=== PATIENT | female | born 1965 | race American Indian/Alaskan Native ===

== ENCOUNTER 2016-07-05 01:49 | Emergency (ER) | payer MEDICARE, MEDICAID ==
[2016-07-05 01:49] VITALS: BMI 23.3
[2016-07-05 02:02] VITALS: O2SAT 98
[2016-07-05 02:32] VITALS: BP 144/72; PULSE 84; RESP 14; TEMP 98.5
--- NOTE | 2016-07-05 02:34 | ED PDOC ---
HPI: Skin/Bite Injury Time Seen by Provider: 07/05/16 01:59 Chief Complaint (Nursing): Abnormal Skin Integrity Chief Complaint (Provider): Rash History Per: Patient History/Exam Limitations: no limitations Onset/Duration Of Symptoms: Days (3) Current Symptoms Are (Timing): Still Present Additional Complaint(s): Sunita Neves is a 51 y/o female, with a past medical history of seizures and schizophrenia, presenting to the ER on 07/05/2016 with a rash. Rash, localized to her trunk, is described as pruritic and is characterized by multiple small areas that are raised and erythematous. Patient denies any associated fever, chills, nausea, vomiting, cough, or shortness of breath. Patient states the presentation began when she had lesions initially in her left upper thigh. Past Medical History Reviewed: Historical Data, Nursing Documentation, Vital Signs Vital Signs: Last Vital Signs Temp 98.6 F 07/05/16 01:59 Pulse 81 07/05/16 01:59 Resp 16 07/05/16 01:59 BP 145/82 07/05/16 01:59 Pulse Ox 98 07/05/16 01:59 - Medical History PMH: Kidney Stones, Schizophrenia, Seizures - Surgical History Surgical History: - Family History Family History: States: Unknown Family Hx - Social History Current smoker - smoking cessation education provided: No Ex-Smoker (has not smoked in the last 12 months): No Alcohol: Occasional Drugs: Denies - Home Medications Home Medications: Ambulatory Orders Medication Instructions Recorded Phenobarbital [Phenobarbital] 1 tab PO DAILY #0 tablet 07/27/15 carBAMazepine [TEGretol-XR] 100 mg PO DAILY #30 ter 07/27/15 Lamotrigine 100 mg PO BID #28 tablet 07/31/15 Phenytoin Sodium Extended 100 mg PO BID #28 capsule 07/31/15 [Dilantin] Risperidone 1 mg PO BID #14 tablet 07/31/15 Topiramate [Topamax] 25 mg PO TID #42 tablet 07/31/15 Bifidobacterium Infantis [Align] 4 mg PO DAILY #30 capsule 10/29/15 Docusate Sodium [Dulcolax Stool 100 mg PO DAILY #12 capsule 05/10/16 Softener] Phenyleph/Mineral Oil/Petrolat 28 gm RC DAILY #1 bottle 05/10/16 [Preparation H Ointment] Docusate [Colace] 100 mg PO BID #20 cap 05/13/16 Hard Fat/Phenylephrine [place] 1 sup RC DAILY #7 sup 05/13/16 [Anusol Suppository] Nystatin [Mycostatin Oint] 1 applic TOP BID #1 tube 07/05/16 - Allergies Allergies/Adverse Reactions: Allergies Allergy/AdvReac Type Severity Reaction Status Date / Time shrimp Allergy SWELLING Verified 07/05/16 01:59 seafood Allergy SWELLING Uncoded 10/29/15 10:19 Review of Systems ROS Statement: Except As Marked, All Systems Reviewed And Found Negative Constitutional: Negative for: Fever, Chills Respiratory: Negative for: Cough, Shortness of Breath Gastrointestinal: Negative for: Nausea, Vomiting, Diarrhea Skin: Positive for: Rash Physical Exam - Reviewed Nursing Documentation Reviewed: Yes Vital Signs Reviewed: Yes - Physical Exam Appears: Positive for: Non-toxic, No Acute Distress Head Exam: Positive for: ATRAUMATIC, NORMOCEPHALIC Skin: Positive for: Rash (multiple small plaques 1-2cm to the trunk that are raised, erythematous) Eye Exam: Positive for: Normal appearance Neck: Positive for: Normal, Painless ROM, Supple Cardiovascular/Chest: Positive for: Regular Rate, Rhythm. Negative for: Murmur Respiratory: Positive for: Normal Breath Sounds. Negative for: Respiratory Distress Extremity: Positive for: Normal ROM. Negative for: Deformity Neurologic/Psych: Positive for: Alert, Oriented (x3). Negative for: Motor/ Sensory Deficits - ECG O2 Sat by Pulse Oximetry: 98 Medical Decision Making Medical Decision Makin:59 Initial Impression- 48 y/o female with candidal rash Pt will be discharged routinely with Rx for Nystatin. Encouraged pt to schedule a follow-up with her PMD within 1-2 days. Advised to return if condition persists or worsen. Condition is stable for discharge. Clinical impression- fungal rash of trunk Documented by Keila Felix, acting as a scribe for Jan Alfaro MD. All medical record entries made by the Scribe were at my direction and personally dictated by me. I have reviewed the chart and agree that the record accurately reflects my personal performance of the history, physical exam, medical decision making, and the department course for this patient. I have also personally directed, reviewed, and agree with the discharge instructions and disposition. Disposition - Clinical Impression Clinical Impression: Fungal rash of trunk - Disposition Disposition: Routine/Home Disposition Time: 02:15 Condition: STABLE Prescriptions: Nystatin [Mycostatin Oint] 1 applic TOP BID #1 tube Instructions: Skin Yeast Infection (ED)
== END 2016-07-05 03:00 | disposition home or self-care (01) ==
LOC: H.ER 01:49
DX: B49 Unspecified mycosis (principal)

== ENCOUNTER 2016-08-14 20:52 | Emergency (ER) | payer MEDICARE, MEDICAID ==
[2016-08-14 20:53] VITALS: BMI 25.7
[2016-08-14 21:13] VITALS: BP 150/85; PULSE 79; RESP 16; TEMP 98.3; O2SAT 99
--- NOTE | 2016-08-14 22:47 | ED PDOC ---
HPI: General Adult Time Seen by Provider: 08/14/16 21:00 Chief Complaint (Nursing): Abdominal Pain Chief Complaint (Provider): Abdominal Pain History Per: Patient History/Exam Limitations: no limitations Onset/Duration Of Symptoms: Days Current Symptoms Are (Timing): Still Present Additional Complaint(s): 51 y/o female presents to the emergency department with a complaint of abdominal (on and off for a year) and shoulder pain x2 days. Associated with urinary urgency. Patient states she had R shoulder pain in the past. Denies fever, vomiting, diarrhea, or vaginal bleeding. Past Medical History Reviewed: Historical Data, Nursing Documentation, Vital Signs Vital Signs: Last Vital Signs Temp 98.3 F 08/14/16 21:05 Pulse 79 08/14/16 21:05 Resp 16 08/14/16 21:05 BP 150/85 08/14/16 21:05 Pulse Ox 99 08/15/16 00:41 - Medical History PMH: Schizophrenia, Seizures (LAST EPISODE 06/18/16-TO ER-IV GIVEN AND D/C HOME) Denies: Chronic Kidney Disease - Surgical History Surgical History: - Family History Family History: States: Unknown Family Hx - Social History Current smoker - smoking cessation education provided: No Alcohol: None Drugs: Denies - Home Medications Home Medications: Ambulatory Orders Medication Instructions Recorded Topiramate [Topamax] 25 mg PO TID #42 tablet 07/31/15 Phenytoin Sodium Extended 2 cap PO BID 07/05/16 [Dilantin] Home Med 07/13/16 - Allergies Allergies/Adverse Reactions: Allergies Allergy/AdvReac Type Severity Reaction Status Date / Time shrimp Allergy SWELLING Verified 07/05/16 01:59 seafood Allergy SWELLING Uncoded 10/29/15 10:19 Review of Systems ROS Statement: Except As Marked, All Systems Reviewed And Found Negative Gastrointestinal: Positive for: Abdominal Pain Genitourinary Female: Positive for: Other (Leaking urine). Negative for: Vaginal Bleeding Musculoskeletal: Positive for: Shoulder Pain (Left) Physical Exam - Reviewed Nursing Documentation Reviewed: Yes Vital Signs Reviewed: Yes - Physical Exam Appears: Positive for: Non-toxic, No Acute Distress Head Exam: Positive for: ATRAUMATIC, NORMOCEPHALIC Skin: Positive for: Normal Color, Warm, Dry Cardiovascular/Chest: Positive for: Regular Rate, Rhythm. Negative for: Murmur Respiratory: Positive for: Normal Breath Sounds. Negative for: Accessory Muscle Use, Respiratory Distress Gastrointestinal/Abdominal: Positive for: Soft, Tenderness (mild suprapubic tenderness) Extremity: Positive for: Normal ROM (with pain of the left shoulder) Neurologic/Psych: Positive for: Alert, Oriented - ECG O2 Sat by Pulse Oximetry: 99 (RA) Pulse Ox Interpretation: Normal Medical Decision Making Medical Decision Making: Time: 21:19 Initial impression: Shoulder pain rule out fracture. Abdominal pain rule out urinary tract infection. Initial plan: --Shoulder left one view (RAD) --Revaluation 0039: Urine is negative for infection. XR left shoulder shows no acute disease. Patient given referral to orthopedist and is stable for d/c. Instructed to return to ED with any worsening or concerning symptoms. Scribe Attestation: Documented by Molly Cotto, acting as a scribe for Linnea Yuan MD. Provider Scribe Attestation: All medical record entries made by the Scribe were at my direction and personally dictated by me. I have reviewed the chart and agree that the record accurately reflects my personal performance of the history, physical exam, medical decision making, and the department course for this patient. I have also personally directed, reviewed, and agree with the discharge instructions and disposition. Disposition - Clinical Impression Clinical Impression: Shoulder pain - Patient ED Disposition Is Patient to be Admitted: No Counseled Patient/Family Regarding: Studies Performed, Diagnosis, Need For Followup - Disposition Referrals: [facility] [Outside] [facility] [Outside] Michael Mcfadden III, MD [Staff Provider] - Disposition: Routine/Home Disposition Time: 00:00 Condition: IMPROVED Additional Instructions: follow up with your primary doctor as well as orthopedics for shoulder pain return to the ED with any worsening or concerning symptoms. Instructions: Shoulder Sprain (ED), Shoulder Pain (ED)
--- NOTE | 2016-08-15 10:21 | RAD ---
PROCEDURE: Radiographs of the Left Shoulder HISTORY: shoulder pain COMPARISON: None FINDINGS: BONES: Osseous demineralization limits evaluation for acute fracture lines. No acute displaced fracture. The distal clavicle and underlying ribs appear intact. JOINTS: No acute dislocation. SOFT TISSUES: Soft tissues appear unremarkable. No evidence of radiopaque foreign body. IMPRESSION: Osseous demineralization. No acute displaced fracture or dislocation evident. If symptoms persist or if there is continued clinical concern, x-ray follow-up in 7-10 days should be considered.
== END 2016-08-15 01:01 | disposition home or self-care (01) ==
LOC: H.ER 20:52
DX: M25.512 Pain in left shoulder (principal); F20.9 Schizophrenia, unspecified; R10.9 Unspecified abdominal pain

== ENCOUNTER 2016-08-22 00:55 | Emergency (ER) | payer MEDICARE, MEDICAID ==
[2016-08-22 00:56] VITALS: BMI 25.7
[2016-08-22 01:18] VITALS: BP 157/91; PULSE 81; RESP 18; TEMP 98.2; O2SAT 100
[2016-08-22] MEDS ORDERED: Naproxen 500 MG TAB PO ONE (01:55)
--- NOTE | 2016-08-22 02:04 | ED PDOC ---
Lower Extremity Pain/Injury Time Seen by Provider: 08/22/16 01:21 Chief Complaint (Nursing): Lower Extremity Problem/Injury History Per: Patient Additional Complaint(s): Pt. states today she developed atraumatic pain and "tightening" to the bottoms of both her feet. Reports that several years ago she sustained a fracture to the R foot. Denies acute trauma, hx of DM, calf pain. Past Medical History Reviewed: Historical Data, Nursing Documentation, Vital Signs Vital Signs: Last Vital Signs Temp 98.2 F 08/22/16 01:06 Pulse 81 08/22/16 01:06 Resp 18 08/22/16 01:06 BP 157/91 H 08/22/16 01:06 Pulse Ox 100 08/22/16 01:06 - Medical History PMH: Schizophrenia, Seizures (LAST EPISODE 06/18/16-TO ER-IV GIVEN AND D/C HOME) Denies: Chronic Kidney Disease - Surgical History Surgical History: - Family History Family History: States: No Known Family Hx - Home Medications Home Medications: Ambulatory Orders Medication Instructions Recorded Topiramate [Topamax] 25 mg PO TID #42 tablet 07/31/15 Phenytoin Sodium Extended 2 cap PO BID 07/05/16 [Dilantin] Home Med 07/13/16 Meloxicam [Mobic] 7.5 mg PO DAILY PRN #30 tab 08/22/16 - Allergies Allergies/Adverse Reactions: Allergies Allergy/AdvReac Type Severity Reaction Status Date / Time shrimp Allergy SWELLING Verified 07/05/16 01:59 seafood Allergy SWELLING Uncoded 10/29/15 10:19 Physical Exam - Physical Exam Appears: Positive for: Well, Non-toxic, No Acute Distress Skin: Positive for: Normal Color, Warm. Negative for: Rash Pulses-Carotid (R): 2+ Pulses-Dorsalis Pedis (L): 2+ Extremity: Positive for: Normal ROM, Capillary Refill (< 2 seconds of both lower extremities). Negative for: Tenderness (both feet), Pedal Edema (both feet), Calf Tenderness (both feet), Deformity (both feet), Swelling (both feet) Neurologic/Psych: Positive for: Alert, Oriented - ECG O2 Sat by Pulse Oximetry: 100 - Radiology X-Ray: Interpreted by Me (B/L foot x-rays) X-Ray Interpretation: No Acute Disease Disposition - Clinical Impression Clinical Impression: Plantar fasciitis - Patient ED Disposition Is Patient to be Admitted: No - Disposition [facility]errals: [facility]] [facility] [Outside] Disposition: Routine/Home Disposition Time: 03:21 Condition: STABLE Prescriptions: Meloxicam [Mobic] 7.5 mg PO DAILY PRN #30 tab PRN Reason: Pain, Mild (1-3) Instructions: Plantar Fasciitis (ED)
--- NOTE | 2016-08-22 08:34 | RAD ---
PROCEDURE: Bilateral Feet Radiographs. HISTORY: Numbness and Pain. No history of recent/ related trauma provided COMPARISON: None. FINDINGS: BONES: Right Foot: No acute fracture Left Foot: No acute JOINTS: Right Foot: Fracture contracture deformities. Left Foot: Contracture deformities. SOFT TISSUES: Right Foot: Normal. Left Foot: Normal. OTHER FINDINGS: Plantar and Achilles Tendon insertion calcaneal spurs IMPRESSION: No acute findings related to/accounting for the clinical presentation.
== END 2016-08-22 04:10 | disposition home or self-care (01) ==
LOC: H.ER 00:55
DX: M72.2 Plantar fascial fibromatosis (principal); F20.9 Schizophrenia, unspecified; Z86.69 Personal history of other diseases of the nervous system and sense organs

== ENCOUNTER 2017-03-12 10:25 | Emergency (ER) | payer MEDICAID, MEDICARE ==
[2017-03-12 10:26] VITALS: BMI 25.7
[2017-03-12 10:50] VITALS: BP 136/73; PULSE 83; RESP 16; TEMP 98.3; O2SAT 100
--- NOTE | 2017-03-12 11:15 | ED PDOC ---
Lower Extremity Pain/Injury Time Seen by Provider: 03/12/17 11:03 Chief Complaint (Nursing): Lower Extremity Problem/Injury Chief Complaint (Provider): knee pain History Per: Patient Additional Complaint(s): 51-year-old female presents to emergency department with left knee pain status post fall on Monday. Patient feels as if she is staggering when she walks since this injury. She has not taken anything for pain relief. She did not sustain head injury or loss of consciousness at time of injury. No medical attention sought at time of injury 2 days ago. Past Medical History Reviewed: Historical Data, Nursing Documentation, Vital Signs Vital Signs: Last Vital Signs Temp 98.3 F 03/12/17 10:44 Pulse 83 03/12/17 10:44 Resp 16 03/12/17 10:44 BP 136/73 03/12/17 10:44 Pulse Ox 100 03/12/17 10:44 - Medical History PMH: No Chronic Diseases, Schizophrenia, Seizures (LAST EPISODE 06/18/16-TO ER- IV GIVEN AND D/C HOME) - Surgical History Surgical History: - Family History Family History: States: No Known Family Hx - Living Arrangements Living Arrangements: With Family - Social History Current smoker - smoking cessation education provided: No Alcohol: None Drugs: Denies - Home Medications Home Medications: Ambulatory Orders Medication Instructions Recorded Topiramate [Topamax] 25 mg PO TID #42 tablet 07/31/15 Phenytoin Sodium Extended 2 cap PO BID 07/05/16 [Dilantin] Home Med 07/13/16 Meloxicam [Mobic] 7.5 mg PO DAILY PRN #30 tab 08/22/16 Ibuprofen [Motrin] 600 mg PO Q6 PRN #15 tab 03/12/17 - Allergies Allergies/Adverse Reactions: Allergies Allergy/AdvReac Type Severity Reaction Status Date / Time shrimp Allergy SWELLING Verified 03/12/17 10:51 seafood Allergy SWELLING Uncoded 03/12/17 10:51 Wells Criteria for PE - Wells Criteria for Pulmonary Embolism Clinical Signs and Symptoms of DVT: No P.E is #1 Diagnosis, or Equally Likely: No Heart Rate >100: No Immobilization at least 3 days;Surgery previous 4 weeks: No Previous, objectively diagnosed PE or DVT: No Hemoptysis: No Malignancy w/treatment within 6 months, or palliative: No Total Score: 0 Review of Systems ROS Statement: Except As Marked, All Systems Reviewed And Found Negative Musculoskeletal: Positive for: Other (left knee pain) Physical Exam - Reviewed Nursing Documentation Reviewed: Yes Vital Signs Reviewed: Yes - Physical Exam Appears: Positive for: Well, Non-toxic, No Acute Distress Skin: Negative for: Rash Eye Exam: Positive for: Normal appearance Extremity: Positive for: Other (Full range of motion left knee, no swelling or ecchymosis, normal distal sensation left lower extremity) Neurologic/Psych: Positive for: Alert, Oriented, Gait (steady) - ECG O2 Sat by Pulse Oximetry: 100 Pulse Ox Interpretation: Normal Medical Decision Making Medical Decision Makin51 year old with left knee pain Patient refused x-ray left knee. She is ambulatory with steady gait. PO motrin dose given along with rx for same. Advised PMD follow up. Disposition - Clinical Impression Clinical Impression: Knee pain - Patient ED Disposition Is Patient to be Admitted: No Counseled Patient/Family Regarding: Diagnosis, Need For Followup, Rx Given - Disposition Referrals: Dilshad Garnica MD [Medical Doctor] - Disposition: Routine/Home Disposition Time: 11:24 Condition: STABLE Additional Instructions: Take rx meds as directed. Follow up with primary care doctor in 2-3 days. Prescriptions: Ibuprofen [Motrin] 600 mg PO Q6 PRN #15 tab PRN Reason: Pain, Moderate (4-7) Instructions: Knee Pain (ED) Forms: [employer] (Indonesian)
== END 2017-03-12 11:39 | disposition home or self-care (01) ==
LOC: H.ER 10:25
DX: M25.561 Pain in right knee (principal); M25.562 Pain in left knee

== ENCOUNTER 2017-03-21 19:27 | Emergency (ER) | payer MEDICARE, MEDICAID ==
[2017-03-21 19:27] VITALS: BMI 25.7
[2017-03-21 19:33] VITALS: BP 133/71; PULSE 83; RESP 16; TEMP 97.5; O2SAT 100
[2017-03-21 21:41] LABS: BASO # 0.1 K/uL (0.0-0.2); BASO % 0.7 % (0.0-2.0); EOS # 0.1 K/uL (0.0-0.7); EOS % 1.1 % (0.0-4.0); HEMATOCRIT 36.1 % (34.0-47.0); MEAN CELL VOLUME 86.2 fl (81.0-99.0); MEAN CORPUSCULAR HEMOGLOBIN 28.5 pg (27.0-31.0); MEAN CORPUSCULAR HGB CONC 33.1 g/dL (33.0-37.0); MEAN PLATELET VOLUME 7.5 fl (7.2-11.7); MONO # 0.6 K/uL (0.0-0.8); MONO % 7.1 % (0.0-10.0); NEUT # 4.2 K/uL (1.8-7.0); NEUT % 53.1 % (50.0-75.0); NRBC % 0.2 % (0.0-0.0); RED CELL DISTRIBUTION WIDTH 14.4 % (11.5-14.5)
[2017-03-21 21:49] LABS: ALCOHOL SERUM < 10 mg/dl (0-10); CALCIUM 8.7 mg/dL (8.4-10.2); CARBON DIOXIDE 23 mmol/L (22-30); CHLORIDE 109 mmol/L (98-107); GFR AFRICAN-AMERICAN > 60; GLUCOSE,RANDOM 139 mg/dL (65-105); SODIUM 141 mmol/l (132-148)
[2017-03-21 21:59] LABS: ALB/GLOB RATIO 1.2 (1.0-2.1); ALKALINE PHOSPHATASE 138 U/L (38-126); ALT/SGPT 30 U/L (9-52); AST/SGOT 37 U/L (14-36); BILIRUBIN,TOTAL 0.9 mg/dl (0.2-1.3); BLOOD UREA NITROGEN 12 mg/dl (7-17); MAGNESIUM 1.9 MG/DL (1.6-2.3); POTASSIUM 4.5 MMOL/L (3.6-5.0); TOTAL PROTEIN 8.6 G/DL (6.3-8.2)
--- NOTE | 2017-03-21 22:32 | CT ---
EXAM: CT Head Without Intravenous Contrast EXAM DATE/TIME: 03/21/2017 9:00 PM CLINICAL HISTORY: 51 years old, female; Condition or disease; Convulsions or seizures; Unspecified; Patient HX: HX of seizures. HX. Of neurological disorder; Additional info: Weakness in lower extremity with dizziness x1wk TECHNIQUE: Axial computed tomography images of the head/brain without intravenous contrast. All CT scans at this facility use one or more dose reduction techniques, viz.: automated exposure control; ma/kV adjustment per patient size (including targeted exams where dose is matched to indication; i.e. head); or iterative reconstruction technique. Coronal and sagittal reformatted images were created and reviewed. COMPARISON: CT - HEAD W/O CONTRAST 2016-06-12 20:58 FINDINGS: Brain: Ventricles are normal in size and configuration. There is no midline shift. There are no intra-axial or extra-axial mass lesions or areas of hemorrhage. There are basal ganglia calcifications. There are no abnormal fluid collections. Villafuerte-white differentiation is maintained. Ventricles: See above. Bones: Cranial vault is intact. Soft tissues: unremarkable Sinuses: There is no acute sinusitis. There is a retention cyst/polyp in the left maxillary sinus Ears and mastoids: Middle ears and mastoids are unremarkable. There is occlusive debris in the left external auditory canal Orbits: Orbital contents are unremarkable. IMPRESSION: No acute intracranial abnormality; occlusion of the left external auditory canal
--- NOTE | 2017-03-21 22:44 | ED PDOC ---
HPI: General Adult Time Seen by Provider: 03/21/17 20:19 Chief Complaint (Nursing): Lower Extremity Problem/Injury Chief Complaint (Provider): Lower extremeity weakness History Per: Patient History/Exam Limitations: no limitations Additional Complaint(s): 51yo F in ED for eval of b/l leg weakness x 1.5 weeks progressing with now difficulty holding her weight. pt has associated dizziness. pt with hx of seizures and is seeing a neurologist. Pt can't remember most recent seizure. Pt states that she take dilatin. negative for head injury, change in speech or gait, change in mentation Past Medical History Reviewed: Historical Data, Nursing Documentation, Vital Signs Vital Signs: Last Vital Signs Temp 97.5 F L 03/21/17 19:29 Pulse 83 03/21/17 19:29 Resp 16 03/21/17 19:29 BP 133/71 03/21/17 19:29 Pulse Ox 100 03/22/17 01:37 - Medical History PMH: Schizophrenia, Seizures (LAST EPISODE 06/18/16-TO ER-IV GIVEN AND D/C HOME) Denies: Chronic Kidney Disease - Surgical History Surgical History: - Family History Family History: States: Unknown Family Hx - Home Medications Home Medications: Ambulatory Orders Medication Instructions Recorded Topiramate [Topamax] 25 mg PO TID #42 tablet 07/31/15 Phenytoin Sodium Extended 2 cap PO BID 07/05/16 [Dilantin] Home Med 07/13/16 Meloxicam [Mobic] 7.5 mg PO DAILY PRN #30 tab 08/22/16 Ibuprofen [Motrin] 600 mg PO Q6 PRN #15 tab 03/12/17 - Allergies Allergies/Adverse Reactions: Allergies Allergy/AdvReac Type Severity Reaction Status Date / Time shrimp Allergy SWELLING Verified 03/12/17 10:51 seafood Allergy SWELLING Uncoded 03/12/17 10:51 Review of Systems ROS Statement: Except As Marked, All Systems Reviewed And Found Negative Gastrointestinal: Negative for: Nausea, Vomiting, Abdominal Pain Musculoskeletal: Positive for: Leg Pain Physical Exam - Reviewed Nursing Documentation Reviewed: Yes Vital Signs Reviewed: Yes - Physical Exam Appears: Positive for: Well, Non-toxic, No Acute Distress Skin: Positive for: Normal Color, Warm, DRY Eye Exam: Positive for: Normal appearance Cardiovascular/Chest: Positive for: Regular Rate, Rhythm Respiratory: Positive for: CNT, Normal Breath Sounds Gastrointestinal/Abdominal: Positive for: Normal Exam Back: Positive for: Normal Inspection Extremity: Positive for: Normal ROM. Negative for: Calf Tenderness, Swelling Neurologic/Psych: Positive for: Alert, floor care specialist II-XII (intact), Oriented, Cerebellar Tests (intact), Other (noted: delay in respons. Pt passed MME. ). Negative for: Motor/Sensory Deficits, Aphasia, Facial Droop - Laboratory Results Result Diagrams: 03/21/17 21:32 03/21/17 21:32 - ECG O2 Sat by Pulse Oximetry: 100 - Other Rad US X-Ray: Read By Radiologist (negative for DVT) - Progress ED Course And Treament: Orders Category Date Time Status HEAD W/O CONTRAST [CT] Stat CT 03/21/17 21:00 Completed ELECTROCARDIOGRAM Stat Cardiology 03/21/17 21:00 Ordered ALCOHOL SERUM Stat Chem 03/21/17 21:32 Completed COMP METABOLIC PANEL Stat Chem 03/21/17 21:32 Completed CREATINE PHOSPHOKINASE Stat Chem 03/21/17 21:32 Completed DILANTIN (PHENYTOIN) Stat Chem 03/21/17 22:51 Uncollected DRUG SCREEN, URINE Stat Chem 03/21/17 21:23 Completed MAGNESIUM Stat Chem 03/21/17 21:32 Completed VITAMIN B12 Stat Chem 03/21/17 22:51 Uncollected EKG-ED [EDNURTX] STAT ED Care 03/21/17 21:01 Active CBC (WITH DIFFERENTIAL) Stat CHACE 03/21/17 21:32 Completed D DIMER [COAG] Stat CHACE 03/21/17 21:07 Ordered Field Service Poultry Technician CONT NURSING 03/21/17 21:00 Active IV Insertion (Saline Lock) ONCE NURSING 03/21/17 21:00 Active URINALYSIS Stat URINALYSIS 03/21/17 21:[address] scan: FINDINGS: Brain: Ventricles are normal in size and configuration. There is no midline shift. There are no intraaxial or extra-axial mass lesions or areas of hemorrhage. There are basal ganglia calcifications. There are no abnormal fluid collections. Villafuerte-white differentiation is maintained. Ventricles: See above. Bones: Cranial vault is intact. Soft tissues: unremarkable Sinuses: There is no acute sinusitis. There is a retention cyst/polyp in the left maxillary sinus Ears and mastoids: Middle ears and mastoids are unremarkable. There is occlusive debris in the left external auditory canal Orbits: Orbital contents are unremarkable. IMPRESSION: No acute intracranial abnormality; occlusion of the left external auditory canal Medical Decision Making Medical Decision Making: Pt evaluated by MD Javier PT with elevated D-dimer, US negative for DVT CTA negative for PE. pt is theraputic with Dilatin. Pt is stable for d.c with prompt f.u with neurologist. 03/21/17 03/21/17 03/21/17 23:26 23:26 22:49 WBC RBC Hgb Hct MCV MCH MCHC RDW Plt Count MPV Neut % (Auto) Lymph % (Auto) [place] % (Auto) Eos % (Auto) Baso % (Auto) Neut # Lymph # [place] # Eos # Baso # D-Dimer, Quantitative 470 H Sodium Potassium Chloride Carbon Dioxide Anion Gap BUN Creatinine Est GFR ( Amer) Est GFR (Non-Af Amer) Random Glucose Calcium Magnesium Total Bilirubin AST ALT Alkaline Phosphatase Total Creatine Kinase Total Protein Albumin Globulin Albumin/Globulin Ratio Vitamin B12 450 Urine Color Urine Clarity Urine pH Ur Specific Bud Urine Protein Urine Glucose (UA) Urine Ketones Urine Blood Urine Nitrate Urine Bilirubin Urine Urobilinogen Ur Leukocyte Esterase Urine RBC (Auto) Urine Microscopic WBC Ur Squamous Epith Cells Urine Opiates Screen Urine Methadone Screen Ur Barbiturates Screen Phenytoin 49.2 H* Ur Phencyclidine Scrn Ur Amphetamines Screen U Benzodiazepines Scrn U Oth Cocaine Metabols U Cannabinoids Screen Alcohol, Quantitative 03/21/17 03/21/17 03/21/17 22:00 21:32 21:32 WBC 8.0 RBC 4.19 Hgb 11.9 L Hct 36.1 MCV 86.2 MCH 28.5 MCHC 33.1 RDW 14.4 Plt Count 208 MPV 7.5 Neut % (Auto) 53.1 Lymph % (Auto) 38.0 [place] % (Auto) 7.1 Eos % (Auto) 1.1 Baso % (Auto) 0.7 Neut # 4.2 Lymph # 3.0 [place] # 0.6 Eos # 0.1 Baso # 0.1 D-Dimer, Quantitative Sodium 141 Potassium 4.5 Chloride 109 H Carbon Dioxide 23 Anion Gap 14 BUN 12 Creatinine 0.6 L Est GFR ( Amer) > 60 Est GFR (Non-Af Amer) > 60 Random Glucose 139 H Calcium 8.7 Magnesium 1.9 Total Bilirubin 0.9 AST 37 H ALT 30 Alkaline Phosphatase 138 H Total Creatine Kinase 91 Total Protein 8.6 H Albumin 4.6 Globulin 4.0 H Albumin/Globulin Ratio 1.2 Vitamin B12 Urine Color Yellow Urine Clarity Slighty-cloudy Urine pH 7.0 Ur Specific Bud 1.010 Urine Protein Negative Urine Glucose (UA) Neg Urine Ketones Negative Urine Blood Negative Urine Nitrate Negative Urine Bilirubin Negative Urine Urobilinogen 0.2-1.0 Ur Leukocyte Esterase Neg Urine RBC (Auto) 1 Urine Microscopic WBC 1 Ur Squamous Epith Cells < 1 Urine Opiates Screen Urine Methadone Screen Ur Barbiturates Screen Phenytoin Ur Phencyclidine Scrn Ur Amphetamines Screen U Benzodiazepines Scrn U Oth Cocaine Metabols U Cannabinoids Screen Alcohol, Quantitative < 10 03/21/17 21:23 WBC RBC Hgb Hct MCV MCH MCHC RDW Plt Count MPV Neut % (Auto) Lymph % (Auto) [place] % (Auto) Eos % (Auto) Baso % (Auto) Neut # Lymph # [place] # Eos # Baso # D-Dimer, Quantitative Sodium Potassium Chloride Carbon Dioxide Anion Gap BUN Creatinine Est GFR ( Amer) Est GFR (Non-Af Amer) Random Glucose Calcium Magnesium Total Bilirubin AST ALT Alkaline Phosphatase Total Creatine Kinase Total Protein Albumin Globulin Albumin/Globulin Ratio Vitamin B12 Urine Color Urine Clarity Urine pH Ur Specific Bud Urine Protein Urine Glucose (UA) Urine Ketones Urine Blood Urine Nitrate Urine Bilirubin Urine Urobilinogen Ur Leukocyte Esterase Urine RBC (Auto) Urine Microscopic WBC Ur Squamous Epith Cells Urine Opiates Screen Negative Urine Methadone Screen Negative Ur Barbiturates Screen Negative Phenytoin Ur Phencyclidine Scrn Negative Ur Amphetamines Screen Negative U Benzodiazepines Scrn Negative U Oth Cocaine Metabols Negative U Cannabinoids Screen Negative Alcohol, Quantitative Disposition - Clinical Impression Clinical Impression: Weakness - Patient ED Disposition Is Patient to be Admitted: No Counseled Patient/Family Regarding: Studies Performed, Diagnosis, Need For Followup - Disposition Disposition: Routine/Home Disposition Time: 02:11 Condition: STABLE Instructions: Weakness (ED) Forms: [employer] ([place])
[2017-03-21 23:29] LABS: RBC URINE 1 /hpf (0-3); URINE BILIRUBIN NEGATIVE (NEGATIVE); URINE BLOOD NEGATIVE (NEGATIVE); URINE COLOR YELLOW (YELLOW); URINE GLUCOSE (UA) NEG (Normal); URINE KETONE NEGATIVE (NEGATIVE); URINE LEUKOCYTE ESTERASE NEG Leu/uL (Negative); URINE PROTEIN NEGATIVE (NEGATIVE); URINE UROBILINOGEN 0.2-1.0 mg/dL (0.2-1.0); WBC URINE 1 /hpf (0-5)
[2017-03-21] MEDS ORDERED: DiphenhydrAMINE 50 mg/ml Inj IVP STA (23:36)
[2017-03-22] MEDS ORDERED: DiphenhydrAMINE 50 mg/ml Inj ONE (00:11)
[2017-03-22] MEDS ORDERED: Iodixanol 320 MG/ML 100 ML BOTTLE IV ONE (00:22)
--- NOTE | 2017-03-22 01:28 | US ---
EXAM: US Duplex Bilateral Lower Extremity Veins EXAM DATE/TIME: 03/21/2017 11:22 PM CLINICAL HISTORY: 51 years old, female; Pain; Leg, lower; Bilateral; Additional info: Injury to lower extremity TECHNIQUE: Real-time ultrasound scan of the veins of the bilateral lower extremities with color Doppler flow, spectral waveform analysis and compression. COMPARISON: There are no prior studies for comparison. FINDINGS: Right deep veins:Common femoral, superficial femoral, popliteal peroneal and posterior tibial veins were evaluated. All veins examined are compressible. There are no intraluminal filling defects. There is expected blood flow on Doppler imaging. There is change in waveform with augmentation. Left deep veins: Common femoral, superficial femoral, popliteal and posterior tibial veins were evaluated. All veins examined are compressible. There are no intraluminal filling defects. There is expected blood flow on Doppler imaging. There is change in waveform with augmentation. Impression: No deep venous thrombosis in the visualized vascular segments of the lower extremities
--- NOTE | 2017-03-22 02:07 | CT ---
EXAM: CT Angiography Chest With Intravenous Contrast EXAM DATE/TIME: 03/21/2017 11:22 PM CLINICAL HISTORY: 51 years old, female; Pain; Other: Rib pain; Additional info: Elevated d-dimer. Rib injury TECHNIQUE: Axial computed tomographic angiography images of the chest with intravenous contrast using pulmonary embolism protocol. All CT scans at this facility use one or more dose reduction techniques, viz.: automated exposure control; ma/kV adjustment per patient size (including targeted exams where dose is matched to indication; i.e. head); or iterative reconstruction technique. MIP reconstructed images were created and reviewed. Coronal and sagittal reformatted images were created and reviewed. CONTRAST: 90 mL of administered intravenously. COMPARISON: There are no prior studies for comparison. FINDINGS: Artifacts: Motion artifact degrades image quality. Heart, aorta and Pulmonary arteries: Heart size is normal.There is trace fluid in pericardial recesses. Aorta is normal in caliber. There are no pulmonary emboli. Aorta: see above Lungs and pleural spaces: Trachea and main bronchi are patent.There is no pneumothorax. There is dependent atelectasis bilaterally. There is no lobar or segmental consolidation. There are no effusions. Mediastinum: The esophagus is unremarkable. There are no pathologically enlarged mediastinal or hilar nodes. Thyroid: Thyroid is not optimally demonstrated. Gland appears diffusely enlarged. Bones/joints: There are no acute osseous abnormalities. No acute displaced rib fractures are visualized Soft tissues: unremarkable Upper abdomen: There are no acute abnormalities in the visualized portion of the abdomen. IMPRESSION: No pulmonary emboli, no focal pneumonia
--- NOTE | 2017-03-23 19:31 | CARD ---
APPROVED REPORT EKG Measurement Heart [id number] <Conclusion> Normal sinus rhythm Nonspecific T wave abnormality Abnormal ECG
== END 2017-03-22 02:19 | disposition home or self-care (01) ==
LOC: H.ER 19:27
DX: M62.81 Muscle weakness (generalized) (principal); F20.9 Schizophrenia, unspecified; Z86.69 Personal history of other diseases of the nervous system and sense organs
CPT/HCPCS: 70450; 71275; 80053; 80185; 80320; 80324; 80345; 80346; 80349; 80353; 80358; 80361; 81003; 81025; 82550; 82607; 83735; 83992; 85025; 85378; 93005; 93970; 96374; 96375; 99284; J1200; J2930; Q9967

== ENCOUNTER 2017-08-26 22:37 | Emergency (ER) | payer MEDICARE, OTHER ==
[2017-08-26 22:38] VITALS: BMI 25.7
[2017-08-26 23:43] LABS: BASO % 0.5 % (0.0-2.0); EOS % 0.1 % (0.0-4.0); HEMOGLOBIN 12.2 g/dL (12.0-16.0); LYMPH % 21.4 % (20.0-40.0); MEAN CELL VOLUME 85.7 fl (81.0-99.0); MEAN CORPUSCULAR HEMOGLOBIN 29.7 pg (27.0-31.0); MEAN CORPUSCULAR HGB CONC 34.7 g/dL (33.0-37.0); MEAN PLATELET VOLUME 6.9 fl (7.2-11.7); MONO % 10.6 % (0.0-10.0); NEUT # 6.2 K/uL (1.8-7.0); NEUT % 67.4 % (50.0-75.0); RBC 4.11 Mil/uL (3.80-5.20); RED CELL DISTRIBUTION WIDTH 14.3 % (11.5-14.5); WHITE BLOOD COUNT 9.1 K/uL (4.8-10.8)
[2017-08-26 23:55] LABS: ALB/GLOB RATIO 1.1 (1.0-2.1); ALBUMIN 4.4 g/dL (3.5-5.0); ALT/SGPT 44 U/L (9-52); AST/SGOT 45 U/L (14-36); BLOOD UREA NITROGEN 8 mg/dl (7-17); CALCIUM 9.7 mg/dL (8.4-10.2); GFR AFRICAN-AMERICAN > 60; GFR NON-AFRICAN AMERICAN > 60
--- NOTE | 2017-08-27 01:39 | ED PDOC ---
HPI: Seizure Time Seen by Provider: 08/26/17 22:53 Chief Complaint (Nursing): Seizure History Per: Patient History/Exam Limitations: no limitations Associated Symptoms: Bit Tongue Additional Complaint(s): 52-year-old Afircan [place] female, with a past medical history of known seizure disorder, presents to ED complaining of a seizure 2 days ago. Patient is well-known to ED. Pt reports she is complaint taking dilantin and topamax, but had seizure day before. Patient states she feels unwell. Reports bite tongue during seizure. Denies assocaited chest pain, cough, nausea, vomiting, diarrhea or fever. PMD: No Family Provider Past Medical History Reviewed: Historical Data, Nursing Documentation, Vital Signs Vital Signs: Last Vital Signs Temp 99.4 F 08/27/17 02:45 Pulse 92 H 08/27/17 02:45 Resp 16 08/27/17 02:45 BP 131/74 08/27/17 02:45 Pulse Ox 99 08/27/17 05:00 - Medical History PMH: Schizophrenia, Seizures (LAST EPISODE 06/18/16-TO ER-IV GIVEN AND D/C HOME) Denies: Chronic Kidney Disease - Surgical History Surgical History: - Family History Family History: States: Unknown Family Hx - Social History Current smoker - smoking cessation education provided: No Alcohol: None Drugs: Denies - Home Medications Home Medications: Ambulatory Orders Medication Instructions Recorded Topiramate [Topamax] 25 mg PO TID #42 tablet 07/31/15 Phenytoin Sodium Extended 2 cap PO BID 07/05/16 [Dilantin] Home Med 07/13/16 Meloxicam [Mobic] 7.5 mg PO DAILY PRN #30 tab 08/22/16 Ibuprofen [Motrin] 600 mg PO Q6 PRN #15 tab 03/12/17 - Allergies Allergies/Adverse Reactions: Allergies Allergy/AdvReac Type Severity Reaction Status Date / Time shrimp Allergy SWELLING Verified 08/26/17 22:42 seafood Allergy SWELLING Uncoded 03/12/17 10:51 Review of Systems ROS Statement: Except As Marked, All Systems Reviewed And Found Negative Constitutional: Negative for: Fever Cardiovascular: Negative for: Chest Pain Respiratory: Negative for: Cough Gastrointestinal: Negative for: Nausea, Vomiting, Diarrhea Psych: Positive for: Other (seizure) Physical Exam - Reviewed Nursing Documentation Reviewed: Yes Vital Signs Reviewed: Yes - Physical Exam Appears: Positive for: Non-toxic Head Exam: Positive for: ATRAUMATIC, NORMAL INSPECTION, NORMOCEPHALIC Skin: Positive for: Normal Color, Warm, Dry Eye Exam: Positive for: Normal appearance, EOMI, PERRL ENT: Positive for: Other (abrasion to right side of tongue) Neck: Positive for: Normal Cardiovascular/Chest: Positive for: Regular Rate, Rhythm Respiratory: Positive for: Normal Breath Sounds. Negative for: Respiratory Distress Gastrointestinal/Abdominal: Positive for: Normal Exam Back: Positive for: Normal Inspection Extremity: Positive for: Normal ROM. Negative for: Deformity Neurologic/Psych: Positive for: Alert, Oriented (x 3) - Laboratory Results Result Diagrams: 08/26/17 23:41 08/26/17 23:41 - ECG O2 Sat by Pulse Oximetry: 99 (RA) Pulse Ox Interpretation: Normal - Critical Care Total Time (In Min): 30 Medical Decision Making Medical Decision Making: Time: 22:58 Impression(s): Break-through seizure in setting of known Epilepsy Plan: - EKG - Alcohol Serum - CMP - Dilantin - Drug Screen, Urine - ED Urine Dipstick - CBC (with differentials) - Topiramate Labs show significant sub-diuretic Dilantin (7 ug/ML). Cerebyx ordered. Time: 00:02 - Cerebyx 1,000 mg Sodium Chloride 0.9% 100 ml IV 02:45AM Pt remained seizure free during duration of ED visit. Diagnosis is recurrent seizure and subtherapeutic dilantin level. Provider suspects noncompliance with neuroleptic regimen and has reinforced need to comply to patient. Upon provider reevaluation patient is feeling better, is medically stable, and requires no further treatment in the ED at this time. Patient will be discharged. Counseling was provided and all questions were answered regarding diagnosis. There is agreement to discharge plan. Return if symptoms persist or worsen. ----- Scribe Attestation: Documented by Cody Flannery, acting as a scribe for Jan Alfaro MD. Provider Scribe Attestation: All medical record entries made by the Scribe were at my direction and personally dictated by me. I have reviewed the chart and agree that the record accurately reflects my personal performance of the history, physical exam, medical decision making, and the department course for this patient. I have also personally directed, reviewed, and agree with the discharge instructions and disposition. Disposition - Clinical Impression Clinical Impression: Recurrent seizures - Patient ED Disposition Is Patient to be Admitted: No - Disposition Disposition: Routine/Home Disposition Time: 02:54 Condition: STABLE Instructions: Epilepsy in Adults Forms: [employer] ([place]ish)
[2017-08-27 02:46] VITALS: BP 131/74; PULSE 92; RESP 16; TEMP 99.4
[2017-08-27 04:56] VITALS: O2SAT 99
--- NOTE | 2017-08-28 06:17 | CARD ---
APPROVED REPORT EKG Measurement Heart [id number] <Conclusion> Normal sinus rhythm Minimal voltage criteria for LVH, may be normal variant Nonspecific T wave abnormality Abnormal ECG
== END 2017-08-27 02:54 | disposition home or self-care (01) ==
LOC: H.ER 22:37
DX: G40.909 Epilepsy, unspecified, not intractable, without status epilepticus (principal); F20.9 Schizophrenia, unspecified
CPT/HCPCS: 80053; 80185; 80201; 80320; 85025; 93005; 96365; 99285; Q2009

== ENCOUNTER 2017-08-28 08:07 | Emergency (ER) | payer MEDICARE, OTHER ==
[2017-08-28 08:11] VITALS: TEMP 98.3
[2017-08-28 08:14] VITALS: BMI 23.8
--- NOTE | 2017-08-28 08:56 | ED PDOC ---
HPI: General Adult Time Seen by Provider: 08/28/17 08:21 Chief Complaint (Nursing): Abdominal Pain Chief Complaint (Provider): Abdominal Pain History Per: Patient History/Exam Limitations: no limitations Onset/Duration Of Symptoms: Unknown Current Symptoms Are (Timing): Still Present Additional Complaint(s): 52 year old female with a history of seizures presents to the ED for evaluation. Patient states she wants her uterus checked out for "disease". Denies fever, nausea, vomiting, diarrhea, abdominal pain, vaginal bleeding or discharge, hematuria, dysuria. She is compliant with her seizure medications and does not was be evaluated for seizures. 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 PMD: none provided Past Medical History Reviewed: Historical Data, Nursing Documentation, Vital Signs Vital Signs: Last Vital Signs Temp 98.3 F 08/28/17 08:10 Pulse 84 08/28/17 11:13 Resp 16 08/28/17 11:13 BP 130/68 08/28/17 11:13 Pulse Ox 99 08/28/17 11:13 - Medical History PMH: Schizophrenia, Seizures (LAST EPISODE 06/18/16-TO ER-IV GIVEN AND D/C HOME) Denies: Chronic Kidney Disease - Surgical History Surgical History: - Family History Family History: States: Unknown Family Hx - Home Medications Home Medications: Ambulatory Orders Medication Instructions Recorded Topiramate [Topamax] 25 mg PO TID #42 tablet 07/31/15 Phenytoin Sodium Extended 2 cap PO BID 07/05/16 [Dilantin] Home Med 07/13/16 Meloxicam [Mobic] 7.5 mg PO DAILY PRN #30 tab 08/22/16 Ibuprofen [Motrin] 600 mg PO Q6 PRN #15 tab 03/12/17 - Allergies Allergies/Adverse Reactions: Allergies Allergy/AdvReac Type Severity Reaction Status Date / Time shrimp Allergy SWELLING Verified 08/28/17 08:28 seafood Allergy SWELLING Uncoded 08/28/17 08:28 Review of Systems ROS Statement: Except As Marked, All Systems Reviewed And Found Negative Physical Exam - Reviewed Nursing Documentation Reviewed: Yes Vital Signs Reviewed: Yes - Physical Exam Appears: Positive for: Non-toxic, No Acute Distress Head Exam: Positive for: ATRAUMATIC, NORMOCEPHALIC Skin: Positive for: Normal Color, Warm, DRY Eye Exam: Positive for: EOMI, Normal appearance, PERRL Neck: Positive for: Normal, Painless ROM Cardiovascular/Chest: Positive for: Regular Rate, Rhythm, Chest Non Tender Respiratory: Positive for: CNT, Normal Breath Sounds Gastrointestinal/Abdominal: Positive for: Soft. Negative for: Tenderness, Distended Extremity: Positive for: Normal ROM. Negative for: Deformity Neurologic/Psych: Positive for: Alert, Oriented (x 3) - Laboratory Results Result Diagrams: 08/28/17 09:28 08/28/17 09:28 - ECG O2 Sat by Pulse Oximetry: 98 (RA) Pulse Ox Interpretation: Normal Medical Decision Making Medical Decision Making: Time: 08:53 Impression: Initial Plan: --CMP --CBC with differentials --Dilantin Patient reports she had a seizure in her sleep two days ago and is still compliant with medications. She follows up with Dr. Downs in [place] for her seizures. Scribe Attestation: Documented by Mariaa Esteves, acting as a scribe for~Alyssia Hill MD ~ Provider Scribe Attestation: All medical record entries made by the Scribe were at my direction and personally dictated by me. I have reviewed the chart and agree that the record accurately reflects my personal performance of the history, physical exam, medical decision making, and the department course for this patient. I have also personally directed, reviewed, and agree with the discharge instructions and disposition. Disposition - Clinical Impression Clinical Impression: Seizure - Patient ED Disposition Is Patient to be Admitted: No - Disposition Disposition Time: 10:54 Condition: STABLE Additional Instructions: FOLLOW-UP WITH YOUR NEUROLOGIST WITHIN 2 DAYS FOR REEVALUATION. Instructions: Seizures Forms: [employer] ([place])
[2017-08-28 09:38] LABS: BASO # 0.1 K/uL (0.0-0.2); BASO % 0.7 % (0.0-2.0); EOS % 0.4 % (0.0-4.0); HEMOGLOBIN 12.1 g/dL (12.0-16.0); LYMPH # 1.9 K/uL (1.0-4.3); LYMPH % 22.6 % (20.0-40.0); MEAN CELL VOLUME 86.4 fl (81.0-99.0); MEAN CORPUSCULAR HEMOGLOBIN 29.5 pg (27.0-31.0); MEAN CORPUSCULAR HGB CONC 34.1 g/dL (33.0-37.0); MEAN PLATELET VOLUME 7.4 fl (7.2-11.7); MONO # 0.6 K/uL (0.0-0.8); MONO % 7.8 % (0.0-10.0); NEUT # 5.7 K/uL (1.8-7.0); NEUT % 68.5 % (50.0-75.0); NRBC % 0.1 % (0.0-0.0); RBC 4.1 Mil/uL (3.80-5.20); RED CELL DISTRIBUTION WIDTH 14.1 % (11.5-14.5); WHITE BLOOD COUNT 8.3 K/uL (4.8-10.8)
[2017-08-28 09:48] LABS: ALB/GLOB RATIO 1.1 (1.0-2.1); ALBUMIN 4.3 g/dL (3.5-5.0); ALT/SGPT 54 U/L (9-52); AST/SGOT 38 U/L (14-36); BLOOD UREA NITROGEN 13 mg/dl (7-17); CALCIUM 9.6 mg/dL (8.4-10.2); GFR AFRICAN-AMERICAN > 60; GFR NON-AFRICAN AMERICAN > 60
[2017-08-28] MEDS ORDERED: Potassium Chloride 20 mEq ER Tab PO STA (10:03)
[2017-08-28] MEDS ORDERED: Potassium Chloride 20 mEq ER Tab PO ONE (10:16)
[2017-08-28 11:14] VITALS: BP 130/68; PULSE 84; RESP 16
[2017-09-01 23:06] VITALS: O2SAT 98
== END 2017-08-28 11:24 | disposition home or self-care (01) ==
LOC: H.ER 08:07
DX: R56.9 Unspecified convulsions (principal); Z86.59 Personal history of other mental and behavioral disorders

== ENCOUNTER 2017-11-10 15:05 | Inpatient (IN) | payer MEDICARE, OTHER ==
[2017-11-10 15:05] VITALS: BMI 23.8
--- NOTE | 2017-11-10 15:43 | ED PDOC ---
HPI: Seizure Time Seen by Provider: 11/10/17 15:15 Chief Complaint (Nursing): Seizure Chief Complaint (Provider): iure History Per: Patient History/Exam Limitations: no limitations Recent Seizure Activity Began: Hours Ago: (this morning) Number Of Seizures: One Associated Symptoms: denies: Bit Tongue Additional Complaint(s): Sunita Moya is a 52 year old female, with a past medical history of seizure and schizophrenia, who was brought to the emergency department via EMS s/p seizure this morning. Patient reports having a seizure this morning, she thought she was fine but when she tried to get up from watching TV this afternoon, she had trouble walking which prompted concern for ED visit. Patient has been compliant with medications and denies any changes in sleep habit, stress at home, alcohol use, drug use or any diet changes. PMD: Dr. Radhika Long Neurologist: Dr. Garnica Past Medical History Reviewed: Historical Data, Nursing Documentation, Vital Signs Vital Signs: Last Vital Signs Temp 98.5 F 11/11/17 12:10 Pulse 83 11/11/17 12:10 Resp 18 11/11/17 12:10 BP 111/69 11/11/17 12:10 Pulse Ox 100 11/11/17 12:10 - Medical History PMH: Schizophrenia, Seizures (LAST EPISODE 06/18/16-TO ER-IV GIVEN AND D/C HOME) Denies: Chronic Kidney Disease - Surgical History Surgical History: - Family History Family History: States: Unknown Family Hx - Social History Current smoker - smoking cessation education provided: No Alcohol: None Drugs: Denies - Home Medications Home Medications: Ambulatory Orders Medication Instructions Recorded Topiramate [Topamax] 25 mg PO TID #42 tablet 07/31/15 Phenytoin Sodium Extended 2 cap PO BID 07/05/16 [Dilantin] Haloperidol Decanoate [Haldol 100 mg IM QWK 11/10/17 Decanoate] - Allergies Allergies/Adverse Reactions: Allergies Allergy/AdvReac Type Severity Reaction Status Date / Time shrimp Allergy SWELLING Verified 11/10/17 15:06 seafood Allergy SWELLING Uncoded 08/28/17 08:28 Review of Systems ROS Statement: Except As Marked, All Systems Reviewed And Found Negative Neurological: Positive for: Seizures, Other (trouble walking) Psych: Negative for: Other (OH or drug use) Physical Exam - Reviewed Nursing Documentation Reviewed: Yes Vital Signs Reviewed: Yes - Physical Exam Appears: Positive for: No Acute Distress Head Exam: Positive for: ATRAUMATIC, NORMAL INSPECTION, NORMOCEPHALIC Skin: Positive for: Normal Color, Warm, Dry Eye Exam: Positive for: Normal appearance, EOMI, PERRL ENT: Positive for: Other (mucous membrane dry with no tongue abrasions) Neck: Positive for: Painless ROM Cardiovascular/Chest: Positive for: Regular Rate, Rhythm. Negative for: Murmur Respiratory: Positive for: Normal Breath Sounds. Negative for: Respiratory Distress Gastrointestinal/Abdominal: Positive for: Normal Exam, Soft. Negative for: Tenderness Back: Positive for: Normal Inspection Extremity: Positive for: Normal ROM. Negative for: Deformity Neurologic/Psych: Positive for: Alert, administrative program specialist II-XII (intact), Oriented (x3), Cerebellar Tests (normal), Gait (slightly unsteady), Other (No pronator drift. Slight slurred speech but may be chronic). Negative for: Motor/Sensory Deficits - Laboratory Results Result Diagrams: 11/11/17 08:34 11/11/17 08:34 - ECG O2 Sat by Pulse Oximetry: 99 (RA) Pulse Ox Interpretation: Normal Medical Decision Making Medical Decision Making: Time: 15:15 Initial Impression: Seizure and unsteady gait. Differential includes but not limited to: dehydration, electrolyte abnormality, breakthrough seizure, Dilantin toxicity, Dilantin deficiency, alcohol intoxication Initial Plan: --Head w/o contrast [CT] --EKG --Alcohol serum --Dilantin --Drug screen, urine --Magnesium --Phosphorus --Urine dipstick --Urine --CBC w/ differential --Reevaluation On review of previous charts, patient has been seen here before for difficulty with walking and had negative work up. 16:[address] FINDINGS: HEMORRHAGE: No intracranial hemorrhage. BRAIN: Normal feng-white matter differentiation and density are appreciated throughout the cerebrum and cerebellum with the brainstem appearing unremarkable as well. There is no mass effect. There is no suspicious extra-axial fluid collection and the midline brain anatomy appears diffusely unremarkable. VENTRICLES: Unremarkable. No hydrocephalus. CALVARIUM: Unremarkable. PARANASAL SINUSES: Unremarkable as visualized. No significant inflammatory changes. MASTOID AIR CELLS: Unremarkable as visualized. No inflammatory changes. OTHER FINDINGS: Partial occlusion left external auditory canal, improved in the interval. IMPRESSION: Stable unremarkable intracranial anatomy in noncontrast CT of the head. Note is made of improvement in soft tissue/ debris at the left external auditory canal with partial inclusion now identified rather than what appear to be complete occlusion 03/21/2017. Clinically correlate further. Labs demonstrate markedly supratherapeutic dilantin. Pt reports that her neurologist told her to take 2-100mg tabs three times a day. Poison center. Serial dilantin level for plateau. Attempted to call pt's neurologist Dr Garnica but no service available for contact. 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 Serial dilantin and can restart dilantin when level <20. Restart at 1-100mg tab 3xday. Seizure precautions. DW pt findings and plan of care. ----- Scribe Attestation: Documented by Clifton Yang, acting as a scribe for Patsy Manjarrez MD. Provider Scribe Attestation: All medical record entries made by the Scribe were at my direction and personally dictated by me. I have reviewed the chart and agree that the record accurately reflects my personal performance of the history, physical exam, medical decision making, and the department course for this patient. I have also personally directed, reviewed, and agree with the discharge instructions and disposition. Disposition - Clinical Impression Clinical Impression: Dilantin toxicity, Ataxia Counseled Patient/Family Regarding: Studies Performed, Diagnosis - Disposition Disposition Time: 18:30 Condition: GUARDED - Pt Status Changed To: Hospital Disposition Of: Observation - POA Present On Arrival: Falls Or Trauma (risk due to ataxia)
--- NOTE | 2017-11-10 16:08 | CT ---
Date of service: 11/10/2017 PROCEDURE: CT HEAD WITHOUT CONTRAST. HISTORY: ataxia COMPARISON: Noncontrast head CT 03/21/2017. TECHNIQUE: Axial computed tomography images were obtained through the head/brain without intravenous contrast. Radiation dose: Total exam DLP = 730.04 mGy-cm. This CT exam was performed using one or more of the following dose reduction techniques: Automated exposure control, adjustment of the mA and/or kV according to patient size, and/or use of iterative reconstruction technique. FINDINGS: HEMORRHAGE: No intracranial hemorrhage. BRAIN: Normal feng-white matter differentiation and density are appreciated throughout the cerebrum and cerebellum with the brainstem appearing unremarkable as well. There is no mass effect. There is no suspicious extra-axial fluid collection and the midline brain anatomy appears diffusely unremarkable. VENTRICLES: Unremarkable. No hydrocephalus. CALVARIUM: Unremarkable. PARANASAL SINUSES: Unremarkable as visualized. No significant inflammatory changes. MASTOID AIR CELLS: Unremarkable as visualized. No inflammatory changes. OTHER FINDINGS: Partial occlusion left external auditory canal, improved in the interval. IMPRESSION: Stable unremarkable intracranial anatomy in noncontrast CT of the head. Note is made of improvement in soft tissue/ debris at the left external auditory canal with partial inclusion now identified rather than what appear to be complete occlusion 03/21/2017. Clinically correlate further.
[2017-11-10 16:51] LABS: BASO % 0.4 % (0.0-2.0); EOS % 0.7 % (0.0-4.0); LYMPH # 1.9 K/uL (1.0-4.3); LYMPH % 29.2 % (20.0-40.0); MEAN CELL VOLUME 86.2 fl (81.0-99.0); MEAN CORPUSCULAR HEMOGLOBIN 28.9 pg (27.0-31.0); MEAN CORPUSCULAR HGB CONC 33.6 g/dL (33.0-37.0); MEAN PLATELET VOLUME 6.9 fl (7.2-11.7); MONO # 0.5 K/uL (0.0-0.8); MONO % 7.7 % (0.0-10.0); NEUT # 4.1 K/uL (1.8-7.0); RBC 4.15 Mil/uL (3.80-5.20); RED CELL DISTRIBUTION WIDTH 13.5 % (11.5-14.5); WHITE BLOOD COUNT 6.6 K/uL (4.8-10.8)
[2017-11-10 16:59] LABS: ALB/GLOB RATIO 1.2 (1.0-2.1); ALBUMIN 4.4 g/dL (3.5-5.0); ALT/SGPT 31 U/L (9-52); AST/SGOT 29 U/L (14-36); BLOOD UREA NITROGEN 10 mg/dl (7-17); CALCIUM 9.3 mg/dL (8.4-10.2); GFR AFRICAN-AMERICAN > 60; GFR NON-AFRICAN AMERICAN > 60
[2017-11-10 17:55] LABS: BARBITURATES, UR NEGATIVE (NEGATIVE)
[2017-11-10 17:58] LABS: BENZODIAZEPINES, UR NEGATIVE (NEGATIVE); OPIATES, UR NEGATIVE (NEGATIVE); PHENCYCLIDINE, UR NEGATIVE (NEGATIVE)
[2017-11-10 19:14] LABS: ACETAMINOPHEN < 10.0 ug/ml (10.0-30.0); SALICYLATE < 1.0 mg/dl
[2017-11-11] MEDS ORDERED: Pneumococcal 23-Valent Vaccine IM ONE (06:00)
--- NOTE | 2017-11-11 06:51 | RAD ---
Date of service: 11/10/2017 HISTORY: seizure, dilantin toxicity COMPARISON: No prior. FINDINGS: LUNGS: No active pulmonary disease. PLEURA: No significant pleural effusion identified, no pneumothorax apparent. CARDIOVASCULAR: Normal. OSSEOUS STRUCTURES: No significant abnormalities. VISUALIZED UPPER ABDOMEN: Normal. OTHER FINDINGS: None. IMPRESSION: No active disease.
--- NOTE | 2017-11-11 07:53 | CARD ---
APPROVED REPORT Date of service: 11/10/2017 <Conclusion> Normal sinus rhythm Nonspecific T wave abnormality Abnormal ECG
[2017-11-11 09:51] LABS: HEMOGLOBIN 13.1 g/dL (12.0-16.0); MEAN CELL VOLUME 85.4 fl (81.0-99.0); MEAN CORPUSCULAR HEMOGLOBIN 29.3 pg (27.0-31.0); MEAN CORPUSCULAR HGB CONC 34.3 g/dL (33.0-37.0); RBC 4.45 Mil/uL (3.80-5.20); RED CELL DISTRIBUTION WIDTH 13.7 % (11.5-14.5); WHITE BLOOD COUNT 8.3 K/uL (4.8-10.8)
[2017-11-11 10:21] LABS: ALB/GLOB RATIO 1.3 (1.0-2.1); ALBUMIN 4.7 g/dL (3.5-5.0); ALT/SGPT 32 U/L (9-52); AST/SGOT 31 U/L (14-36); BLOOD UREA NITROGEN 13 mg/dl (7-17); CALCIUM 9.5 mg/dL (8.4-10.2); GFR AFRICAN-AMERICAN > 60; GFR NON-AFRICAN AMERICAN > 60; HDL CHOLESTEROL 66 MG/DL (30-70); LDL CHOLESTEROL 96 mg/dL (0-129)
[2017-11-11 10:22] LABS: T4 4.04 ug/dl (5.5-11.0)
[2017-11-11 10:35] LABS: T3 0.992 nmol/L (1.49-2.60)
--- NOTE | 2017-11-11 12:05 | CP.PCM.CON ---
History of Present Illness - History of Present Illness History of Present Illness: consult requested for possible previous hx of schizophrenia pt is 52 ys old female, reported no previous formal psychiatric diagnosis or treatment, denied any previous psychiatric help, denied any current mood or psychotic symptoms, denied psychotic symptoms Past Patient History - Infectious Disease Hx of Infectious Diseases: None - Tetanus Immunizations Tetanus Immunization: Unknown - Past Medical History & Family History Past Medical History?: Yes - Past Social History Smoking Status: Never Smoked - CARDIAC Hx Cardiac Disorders: No - PULMONARY Hx Respiratory Disorders: No - NEUROLOGICAL Hx Seizures: Yes (LAST EPISODE 06/18/16-TO ER-IV GIVEN AND D/C HOME) - HEENT Hx HEENT Problems: No - RENAL Hx Chronic Kidney Disease: No - ENDOCRINE/METABOLIC Hx Endocrine Disorders: No - HEMATOLOGICAL/ONCOLOGICAL Hx Blood Disorders: No Hx AIDS: No Hx Human Immunodeficiency Virus (HIV): No - INTEGUMENTARY Hx Dermatological Problems: No - MUSCULOSKELETAL/RHEUMATOLOGICAL Hx Musculoskeletal Disorders: No Hx Falls: No - GASTROINTESTINAL Hx Gastrointestinal Disorders: Yes Hx Hemorrhoids: Yes - GENITOURINARY/GYNECOLOGICAL Hx Genitourinary Disorders: No - PSYCHIATRIC Hx Schizophrenia: Yes Hx Substance Use: No - SURGICAL HISTORY Hx Surgeries: No - ANESTHESIA Hx Anesthesia: No Hx Anesthesia Reactions: No Hx Malignant Hyperthermia: No Has any member of the family had a problem w/ anesthesia?: No Meds Allergies/Adverse Reactions: Allergies Allergy/AdvReac Type Severity Reaction Status Date / Time shrimp Allergy SWELLING Verified 11/10/17 15:06 seafood Allergy SWELLING Uncoded 08/28/17 08:28 - Medications Medications: Current Medications Lorazepam (Ativan) 2 mg IVP PRN PRN PRN Reason: Seizure activity Physical Exam - Psychiatric Exam Additional comments: pt seen in bed, alert awake oriented x3, speech normal thought process goal directed, denied any current perceptual disturbances, non elicited denied suicidal or homicidal ideation, denied anxiety symptoms Results - Vital Signs Recent Vital Signs: Last Vital Signs Temp 98.7 F 11/11/17 07:50 Pulse 69 11/11/17 07:50 Resp 18 11/11/17 07:50 BP 133/78 11/11/17 07:50 Pulse Ox 99 11/11/17 07:50 - Labs Result Diagrams: 11/11/17 08:34 11/11/17 08:34 Labs: Laboratory Results - last 24 hr 0811/10/17 11/10/17 16:16 16:42 16:42 WBC 6.6 RBC 4.15 Hgb 12.0 Hct 35.8 MCV 86.2 MCH 28.9 MCHC 33.6 RDW 13.5 Plt Count 186 MPV 6.9 L Neut % (Auto) 62.0 Lymph % (Auto) 29.2 [place] % (Auto) 7.7 Eos % (Auto) 0.7 Baso % (Auto) 0.4 Neut # (Auto) 4.1 Lymph # (Auto) 1.9 [place] # (Auto) 0.5 Eos # (Auto) 0.0 Baso # (Auto) 0.0 Sodium 142 Potassium 3.7 Chloride 108 H Carbon Dioxide 26 Anion Gap 12 BUN 10 Creatinine 0.7 Est GFR ( Amer) > 60 Est GFR (Non-Af Amer) > 60 POC Glucose (mg/dL) 100 Random Glucose 109 H Lactic Acid Calcium 9.3 Phosphorus 3.5 Magnesium 1.9 Total Bilirubin 0.4 AST 29 ALT 31 Alkaline Phosphatase 124 Total Protein 7.9 Albumin 4.4 Globulin 3.5 Albumin/Globulin Ratio 1.2 Triglycerides Cholesterol LDL Cholesterol Direct HDL Cholesterol Thyroxine (T4) Total T3 TSH 3rd Generation Salicylates Urine Opiates Screen Urine Methadone Screen Acetaminophen Ur Barbiturates Screen Phenytoin Ur Phencyclidine Scrn Ur Amphetamines Screen U Benzodiazepines Scrn U Oth Cocaine Metabols U Cannabinoids Screen Alcohol, Quantitative < 10 11/10/17 11/10/17 11/10/17 16:42 16:42 17:25 WBC RBC Hgb Hct MCV MCH MCHC RDW Plt Count MPV Neut % (Auto) Lymph % (Auto) [place] % (Auto) Eos % (Auto) Baso % (Auto) Neut # (Auto) Lymph # (Auto) [place] # (Auto) Eos # (Auto) Baso # (Auto) Sodium Potassium Chloride Carbon Dioxide Anion Gap BUN Creatinine Est GFR ( Amer) Est GFR (Non-Af Amer) POC Glucose (mg/dL) Random Glucose Lactic Acid 0.7 Calcium Phosphorus Magnesium Total Bilirubin AST ALT Alkaline Phosphatase Total Protein Albumin Globulin Albumin/Globulin Ratio Triglycerides Cholesterol LDL Cholesterol Direct HDL Cholesterol Thyroxine (T4) Total T3 TSH 3rd Generation Salicylates Urine Opiates Screen Negative Urine Methadone Screen Negative Acetaminophen Ur Barbiturates Screen Negative Phenytoin 52.6 H* Ur Phencyclidine Scrn Negative Ur Amphetamines Screen Negative U Benzodiazepines Scrn Negative U Oth Cocaine Metabols Negative U Cannabinoids Screen Negative Alcohol, Quantitative 11/10/17 11/10/17 11/11/17 18:51 22:30 08:34 WBC 8.3 RBC 4.45 Hgb 13.1 Hct 38.0 MCV 85.4 MCH 29.3 MCHC 34.3 RDW 13.7 Plt Count 208 MPV Neut % (Auto) Lymph % (Auto) [place] % (Auto) Eos % (Auto) Baso % (Auto) Neut # (Auto) Lymph # (Auto) [place] # (Auto) Eos # (Auto) Baso # (Auto) Sodium Potassium Chloride Carbon Dioxide Anion Gap BUN Creatinine Est GFR ( Amer) Est GFR (Non-Af Amer) POC Glucose (mg/dL) Random Glucose Lactic Acid Calcium Phosphorus Magnesium Total Bilirubin AST ALT Alkaline Phosphatase Total Protein Albumin Globulin Albumin/Globulin Ratio Triglycerides Cholesterol LDL Cholesterol Direct HDL Cholesterol Thyroxine (T4) Total T3 TSH 3rd Generation Salicylates < 1.0 Urine Opiates Screen Urine Methadone Screen Acetaminophen < 10.0 L Ur Barbiturates Screen Phenytoin 52.1 H* Ur Phencyclidine Scrn Ur Amphetamines Screen U Benzodiazepines Scrn U Oth Cocaine Metabols U Cannabinoids Screen Alcohol, Quantitative 11/11/17 11/11/17 08:34 08:34 WBC RBC Hgb Hct MCV MCH MCHC RDW Plt Count MPV Neut % (Auto) Lymph % (Auto) [place] % (Auto) Eos % (Auto) Baso % (Auto) Neut # (Auto) Lymph # (Auto) [place] # (Auto) Eos # (Auto) Baso # (Auto) Sodium 145 Potassium 4.0 Chloride 107 Carbon Dioxide 26 Anion Gap 16 BUN 13 Creatinine 0.7 Est GFR ( Amer) > 60 Est GFR (Non-Af Amer) > 60 POC Glucose (mg/dL) Random Glucose 135 H Lactic Acid Calcium 9.5 Phosphorus Magnesium Total Bilirubin 0.5 AST 31 ALT 32 Alkaline Phosphatase 128 H Total Protein 8.4 H Albumin 4.7 Globulin 3.7 Albumin/Globulin Ratio 1.3 Triglycerides 52 Cholesterol 201 H LDL Cholesterol Direct 96 HDL Cholesterol 66 Thyroxine (T4) 4.04 L Total T3 0.992 L TSH 3rd Generation 0.69 Salicylates Urine Opiates Screen Urine Methadone Screen Acetaminophen Ur Barbiturates Screen Phenytoin 35.0 H Ur Phencyclidine Scrn Ur Amphetamines Screen U Benzodiazepines Scrn U Oth Cocaine Metabols U Cannabinoids Screen Alcohol, Quantitative Assessment & Plan - Assessment and Plan (Free Text) Assessment: no diagnosis or condition on axis I
--- NOTE | 2017-11-11 14:42 | CP.PCM.HP ---
History of Present Illness - History of Present Illness History of Present Illness: CC: Seizure Disorder. 52 y/o F, Hx of Seizure ( Last episode 06/18/16), [facility] for evaluation of seizure activity while at home with non associated symptoms in AM DOA. Pt stated, she has noticed a seizure in AM DOA and she thought that episode was subsided, but when she tried to get up from watching TV she had trouble walking and came to hospital for evaluation and and Tx. Worsening symptoms: Critical Dilantin report of 52.6 Non aggravated factor, Pt in compliance with medication. Pt denied: Any stress or habit changes at home, alcohol/drug use, fever, chills , CP, palpitations, SOB, cough, sick contact, recent travel out of [facility]. CXR: No active disease. EKG: Normal sinus rhythm. Head CT: No acute findings. Stable unremarkable intracranial anatomy , improvement of soft tissue/debris at the left external auditory canal with partial occlusion Present on Admission - Present on Admission Any Indicators Present on Admission: No Review of Systems - Constitutional Constitutional: Other (negative) - EENT Eyes: Other (negative) Ears: Other (negative) Nose/Mouth/Throat: Other (negative) - Cardiovascular Cardiovascular: Other (negative) - Respiratory Respiratory: Other (negative) - Gastrointestinal Gastrointestinal: Other (negative) - Genitourinary Genitourinary: Other (negative) - Musculoskeletal Musculoskeletal: Other (negative) - Integumentary Integumentary: Other (negative) - Neurological Neurological: Convulsions - Psychiatric Psychiatric: Other (negative) - Endocrine Endocrine: Other (negative) - Hematologic/Lymphatic Hematologic: Other (negative) Past Patient History - Infectious Disease Hx of Infectious Diseases: None - Tetanus Immunizations Tetanus Immunization: Unknown - Past Medical History & Family History Past Medical History?: Yes Pertinent Family History: Unknown - Past Social History Smoking Status: Never Smoked Alcohol: None Drugs: Denies Home Situation {Lives}: Alone - CARDIAC Hx Cardiac Disorders: No - PULMONARY Hx Respiratory Disorders: No - NEUROLOGICAL Hx Neurological Disorder: Yes Hx Seizures: Yes (LAST EPISODE 06/18/16-TO ER-IV GIVEN AND D/C HOME) - HEENT Hx HEENT Problems: No - RENAL Hx Chronic Kidney Disease: No - ENDOCRINE/METABOLIC Hx Endocrine Disorders: No - HEMATOLOGICAL/ONCOLOGICAL Hx Blood Disorders: No Hx AIDS: No Hx Human Immunodeficiency Virus (HIV): No - INTEGUMENTARY Hx Dermatological Problems: No - MUSCULOSKELETAL/RHEUMATOLOGICAL Hx Musculoskeletal Disorders: No Hx Falls: No - GASTROINTESTINAL Hx Gastrointestinal Disorders: Yes Hx Hemorrhoids: Yes - GENITOURINARY/GYNECOLOGICAL Hx Genitourinary Disorders: No - PSYCHIATRIC Hx Psychophysiologic Disorder: Yes Hx Schizophrenia: Yes Hx Substance Use: No - SURGICAL HISTORY Hx Surgeries: No - ANESTHESIA Hx Anesthesia: No Hx Anesthesia Reactions: No Hx Malignant Hyperthermia: No Has any member of the family had a problem w/ anesthesia?: No Meds Allergies/Adverse Reactions: Allergies Allergy/AdvReac Type Severity Reaction Status Date / Time shrimp Allergy SWELLING Verified 11/10/17 15:06 seafood Allergy SWELLING Uncoded 08/28/17 08:28 Physical Exam - Constitutional Appears: No Acute Distress - Head Exam Head Exam: NORMAL INSPECTION - Eye Exam Eye Exam: PERRL - ENT Exam ENT Exam: Normal Exam - Neck Exam Neck exam: Positive for: Normal Inspection - Respiratory Exam Respiratory Exam: Clear to Auscultation Bilateral - Cardiovascular Exam Cardiovascular Exam: REGULAR RHYTHM - GI/Abdominal Exam GI & Abdominal Exam: Normal Bowel Sounds, Soft - Extremities Exam Extremities exam: Positive for: normal inspection - Back Exam Back exam: NORMAL INSPECTION - Neurological Exam Neurological exam: Alert, Oriented x3 Additional comments: No motor/sensory deficit. - Psychiatric Exam Psychiatric exam: Normal Mood - Skin Skin Exam: Warm Results - Vital Signs Recent Vital Signs: Last Vital Signs Temp 98.5 F 11/11/17 12:10 Pulse 83 11/11/17 12:10 Resp 18 11/11/17 12:10 BP 111/69 11/11/17 12:10 Pulse Ox 100 11/11/17 12:10 reviewed J.P. - Labs Result Diagrams: 11/11/17 08:34 11/11/17 08:34 Labs: Laboratory Results - last 24 hr 11/10/17 11/10/17 11/10/17 16:16 16:42 16:42 WBC 6.6 RBC 4.15 Hgb 12.0 Hct 35.8 MCV 86.2 MCH 28.9 MCHC 33.6 RDW 13.5 Plt Count 186 MPV 6.9 L Neut % (Auto) 62.0 Lymph % (Auto) 29.2 [place] % (Auto) 7.7 Eos % (Auto) 0.7 Baso % (Auto) 0.4 Neut # (Auto) 4.1 Lymph # (Auto) 1.9 [place] # (Auto) 0.5 Eos # (Auto) 0.0 Baso # (Auto) 0.0 Sodium 142 Potassium 3.7 Chloride 108 H Carbon Dioxide 26 Anion Gap 12 BUN 10 Creatinine 0.7 Est GFR ( Amer) > 60 Est GFR (Non-Af Amer) > 60 POC Glucose (mg/dL) 100 Random Glucose 109 H Lactic Acid Calcium 9.3 Phosphorus 3.5 Magnesium 1.9 Total Bilirubin 0.4 AST 29 ALT 31 Alkaline Phosphatase 124 Total Protein 7.9 Albumin 4.4 Globulin 3.5 Albumin/Globulin Ratio 1.2 Triglycerides Cholesterol LDL Cholesterol Direct HDL Cholesterol Thyroxine (T4) Total T3 TSH 3rd Generation Salicylates Urine Opiates Screen Urine Methadone Screen Acetaminophen Ur Barbiturates Screen Phenytoin Ur Phencyclidine Scrn Ur Amphetamines Screen U Benzodiazepines Scrn U Oth Cocaine Metabols U Cannabinoids Screen Alcohol, Quantitative < 10 11/10/17 11/10/17 11/10/17 16:42 16:42 17:25 WBC RBC Hgb Hct MCV MCH MCHC RDW Plt Count MPV Neut % (Auto) Lymph % (Auto) [place] % (Auto) Eos % (Auto) Baso % (Auto) Neut # (Auto) Lymph # (Auto) [place] # (Auto) Eos # (Auto) Baso # (Auto) Sodium Potassium Chloride Carbon Dioxide Anion Gap BUN Creatinine Est GFR ( Amer) Est GFR (Non-Af Amer) POC Glucose (mg/dL) Random Glucose Lactic Acid 0.7 Calcium Phosphorus Magnesium Total Bilirubin AST ALT Alkaline Phosphatase Total Protein Albumin Globulin Albumin/Globulin Ratio Triglycerides Cholesterol LDL Cholesterol Direct HDL Cholesterol Thyroxine (T4) Total T3 TSH 3rd Generation Salicylates Urine Opiates Screen Negative Urine Methadone Screen Negative Acetaminophen Ur Barbiturates Screen Negative Phenytoin 52.6 H* Ur Phencyclidine Scrn Negative Ur Amphetamines Screen Negative U Benzodiazepines Scrn Negative U Oth Cocaine Metabols Negative U Cannabinoids Screen Negative Alcohol, Quantitative 11/10/17 11/10/17 11/11/17 18:51 22:30 08:34 WBC 8.3 RBC 4.45 Hgb 13.1 Hct 38.0 MCV 85.4 MCH 29.3 MCHC 34.3 RDW 13.7 Plt Count 208 MPV Neut % (Auto) Lymph % (Auto) [place] % (Auto) Eos % (Auto) Baso % (Auto) Neut # (Auto) Lymph # (Auto) [place] # (Auto) Eos # (Auto) Baso # (Auto) Sodium Potassium Chloride Carbon Dioxide Anion Gap BUN Creatinine Est GFR ( Amer) Est GFR (Non-Af Amer) POC Glucose (mg/dL) Random Glucose Lactic Acid Calcium Phosphorus Magnesium Total Bilirubin AST ALT Alkaline Phosphatase Total Protein Albumin Globulin Albumin/Globulin Ratio Triglycerides Cholesterol LDL Cholesterol Direct HDL Cholesterol Thyroxine (T4) Total T3 TSH 3rd Generation Salicylates < 1.0 Urine Opiates Screen Urine Methadone Screen Acetaminophen < 10.0 L Ur Barbiturates Screen Phenytoin 52.1 H* Ur Phencyclidine Scrn Ur Amphetamines Screen U Benzodiazepines Scrn U Oth Cocaine Metabols U Cannabinoids Screen Alcohol, Quantitative 11/11/17 11/11/17 08:34 08:34 WBC RBC Hgb Hct MCV MCH MCHC RDW Plt Count MPV Neut % (Auto) Lymph % (Auto) [place] % (Auto) Eos % (Auto) Baso % (Auto) Neut # (Auto) Lymph # (Auto) [place] # (Auto) Eos # (Auto) Baso # (Auto) Sodium 145 Potassium 4.0 Chloride 107 Carbon Dioxide 26 Anion Gap 16 BUN 13 Creatinine 0.7 Est GFR ( Amer) > 60 Est GFR (Non-Af Amer) > 60 POC Glucose (mg/dL) Random Glucose 135 H Lactic Acid Calcium 9.5 Phosphorus Magnesium Total Bilirubin 0.5 AST 31 ALT 32 Alkaline Phosphatase 128 H Total Protein 8.4 H Albumin 4.7 Globulin 3.7 Albumin/Globulin Ratio 1.3 Triglycerides 52 Cholesterol 201 H LDL Cholesterol Direct 96 HDL Cholesterol 66 Thyroxine (T4) 4.04 L Total T3 0.992 L TSH 3rd Generation 0.69 Salicylates Urine Opiates Screen Urine Methadone Screen Acetaminophen Ur Barbiturates Screen Phenytoin 35.0 H Ur Phencyclidine Scrn Ur Amphetamines Screen U Benzodiazepines Scrn U Oth Cocaine Metabols U Cannabinoids Screen Alcohol, Quantitative reviewed J.P. - EKG Data EKG comments: reviewed J.P. - Imaging and Cardiology Chest x-ray Status: Report reviewed by me (Swati) CT scan - head Status: Report reviewed by me (J.P.) Assessment & Plan (1) Seizure disorder Status: Acute Priority: High (2) Dilantin toxicity Status: Acute Priority: High - Assessment and Plan (Free Text) Plan: Dilantin decreased from 52.1 yesterday to 35.0 today, continue Ativan, monitor Dilantin level, Psychiatric consult appreciated, Neuro [facility]. - Date & Time Date: 11/11/17 Time: 12:20
--- NOTE | 2017-11-11 16:21 | CP.PCM.CON ---
History of Present Illness - History of Present Illness History of Present Illness: Neurology Consultation Note: Mrs. Moya is a 52-year-old woman with a past medical history of seizures and schizophrenia, who was brought to the emergency department after having a seizure yesterday morning. Labs showed dilantin level of over 50. CT scan of the head did not show any acute findings. She was ataxic. She is improving now with levels of dilantin decreasing. Most recent level is 35. She was taking 600 mg of dilantin daily. Review of Systems - Review of Systems All systems: reviewed and no additional remarkable complaints except Past Patient History - Infectious Disease Hx of Infectious Diseases: None - Tetanus Immunizations Tetanus Immunization: Unknown - Past Medical History & Family History Past Medical History?: Yes - Past Social History Alcohol: None Drugs: Denies - CARDIAC Hx Cardiac Disorders: No - PULMONARY Hx Respiratory Disorders: No - NEUROLOGICAL Hx Seizures: Yes (LAST EPISODE 06/18/16-TO ER-IV GIVEN AND D/C HOME) - HEENT Hx HEENT Problems: No - RENAL Hx Chronic Kidney Disease: No - ENDOCRINE/METABOLIC Hx Endocrine Disorders: No - INTEGUMENTARY Hx Dermatological Problems: No - MUSCULOSKELETAL/RHEUMATOLOGICAL Hx Musculoskeletal Disorders: No Hx Falls: No - GASTROINTESTINAL Hx Gastrointestinal Disorders: Yes Hx Hemorrhoids: Yes - GENITOURINARY/GYNECOLOGICAL Hx Genitourinary Disorders: No - PSYCHIATRIC Hx Schizophrenia: Yes - SURGICAL HISTORY Hx Surgeries: No - ANESTHESIA Hx Anesthesia: No Hx Anesthesia Reactions: No Hx Malignant Hyperthermia: No Has any member of the family had a problem w/ anesthesia?: No Meds Allergies/Adverse Reactions: Allergies Allergy/AdvReac Type Severity Reaction Status Date / Time shrimp Allergy SWELLING Verified 11/10/17 15:06 seafood Allergy SWELLING Uncoded 08/28/17 08:28 - Medications Medications: Current Medications Lorazepam (Ativan) 2 mg IVP PRN PRN PRN Reason: Seizure activity Physical Exam - Neurological Exam Neurological exam: Abnormal Gait, Alert, CN II-XII Intact, Oriented x3, Reflexes Normal Results - Vital Signs Recent Vital Signs: Last Vital Signs Temp 98.9 F 11/11/17 15:48 Pulse 80 11/11/17 15:48 Resp 18 11/11/17 15:48 BP 116/74 11/11/17 15:48 Pulse Ox 98 11/11/17 15:48 - Labs Result Diagrams: 11/11/17 08:34 11/11/17 08:34 Labs: Laboratory Results - last 24 hr 11/10/17 11/10/17 11/10/17 16:16 16:42 16:42 WBC 6.6 RBC 4.15 Hgb 12.0 Hct 35.8 MCV 86.2 MCH 28.9 MCHC 33.6 RDW 13.5 Plt Count 186 MPV 6.9 L Neut % (Auto) 62.0 Lymph % (Auto) 29.2 [place] % (Auto) 7.7 Eos % (Auto) 0.7 Baso % (Auto) 0.4 Neut # (Auto) 4.1 Lymph # (Auto) 1.9 [place] # (Auto) 0.5 Eos # (Auto) 0.0 Baso # (Auto) 0.0 Sodium 142 Potassium 3.7 Chloride 108 H Carbon Dioxide 26 Anion Gap 12 BUN 10 Creatinine 0.7 Est GFR ( Amer) > 60 Est GFR (Non-Af Amer) > 60 POC Glucose (mg/dL) 100 Random Glucose 109 H Lactic Acid Calcium 9.3 Phosphorus 3.5 Magnesium 1.9 Total Bilirubin 0.4 AST 29 ALT 31 Alkaline Phosphatase 124 Total Protein 7.9 Albumin 4.4 Globulin 3.5 Albumin/Globulin Ratio 1.2 Triglycerides Cholesterol LDL Cholesterol Direct HDL Cholesterol Thyroxine (T4) Total T3 TSH 3rd Generation Salicylates Urine Opiates Screen Urine Methadone Screen Acetaminophen Ur Barbiturates Screen Phenytoin Ur Phencyclidine Scrn Ur Amphetamines Screen U Benzodiazepines Scrn U Oth Cocaine Metabols U Cannabinoids Screen Alcohol, Quantitative < 10 11/10/17 11/10/17 11/10/17 16:42 16:42 17:25 WBC RBC Hgb Hct MCV MCH MCHC RDW Plt Count MPV Neut % (Auto) Lymph % (Auto) San[place] % (Auto) Eos % (Auto) Baso % (Auto) Neut # (Auto) Lymph # (Auto) [place] # (Auto) Eos # (Auto) Baso # (Auto) Sodium Potassium Chloride Carbon Dioxide Anion Gap BUN Creatinine Est GFR ( Amer) Est GFR (Non-Af Amer) POC Glucose (mg/dL) Random Glucose Lactic Acid 0.7 Calcium Phosphorus Magnesium Total Bilirubin AST ALT Alkaline Phosphatase Total Protein Albumin Globulin Albumin/Globulin Ratio Triglycerides Cholesterol LDL Cholesterol Direct HDL Cholesterol Thyroxine (T4) Total T3 TSH 3rd Generation Salicylates Urine Opiates Screen Negative Urine Methadone Screen Negative Acetaminophen Ur Barbiturates Screen Negative Phenytoin 52.6 H* Ur Phencyclidine Scrn Negative Ur Amphetamines Screen Negative U Benzodiazepines Scrn Negative U Oth Cocaine Metabols Negative U Cannabinoids Screen Negative Alcohol, Quantitative 11/10/17 11/10/17 11/11/17 18:51 22:30 08:34 WBC 8.3 RBC 4.45 Hgb 13.1 Hct 38.0 MCV 85.4 MCH 29.3 MCHC 34.3 RDW 13.7 Plt Count 208 MPV Neut % (Auto) Lymph % (Auto) Sanborn % (Auto) Eos % (Auto) Baso % (Auto) Neut # (Auto) Lymph # (Auto) Sanborn # (Auto) Eos # (Auto) Baso # (Auto) Sodium Potassium Chloride Carbon Dioxide Anion Gap BUN Creatinine Est GFR ( Amer) Est GFR (Non-Af Amer) POC Glucose (mg/dL) Random Glucose Lactic Acid Calcium Phosphorus Magnesium Total Bilirubin AST ALT Alkaline Phosphatase Total Protein Albumin Globulin Albumin/Globulin Ratio Triglycerides Cholesterol LDL Cholesterol Direct HDL Cholesterol Thyroxine (T4) Total T3 TSH 3rd Generation Salicylates < 1.0 Urine Opiates Screen Urine Methadone Screen Acetaminophen < 10.0 L Ur Barbiturates Screen Phenytoin 52.1 H* Ur Phencyclidine Scrn Ur Amphetamines Screen U Benzodiazepines Scrn U Oth Cocaine Metabols U Cannabinoids Screen Alcohol, Quantitative 11/11/17 11/11/17 08:34 08:34 WBC RBC Hgb Hct MCV MCH MCHC RDW Plt Count MPV Neut % (Auto) Lymph % (Auto) Sanborn % (Auto) Eos % (Auto) Baso % (Auto) Neut # (Auto) Lymph # (Auto) Sanborn # (Auto) Eos # (Auto) Baso # (Auto) Sodium 145 Potassium 4.0 Chloride 107 Carbon Dioxide 26 Anion Gap 16 BUN 13 Creatinine 0.7 Est GFR ( Amer) > 60 Est GFR (Non-Af Amer) > 60 POC Glucose (mg/dL) Random Glucose 135 H Lactic Acid Calcium 9.5 Phosphorus Magnesium Total Bilirubin 0.5 AST 31 ALT 32 Alkaline Phosphatase 128 H Total Protein 8.4 H Albumin 4.7 Globulin 3.7 Albumin/Globulin Ratio 1.3 Triglycerides 52 Cholesterol 201 H LDL Cholesterol Direct 96 HDL Cholesterol 66 Thyroxine (T4) 4.04 L Total T3 0.992 L TSH 3rd Generation 0.69 Salicylates Urine Opiates Screen Urine Methadone Screen Acetaminophen Ur Barbiturates Screen Phenytoin 35.0 H Ur Phencyclidine Scrn Ur Amphetamines Screen U Benzodiazepines Scrn U Oth Cocaine Metabols U Cannabinoids Screen Alcohol, Quantitative Assessment & Plan (1) Ataxia Assessment and Plan: Likely due to dilantin toxicity. Will monitor. Status: Acute (2) Dilantin toxicity Assessment and Plan: Hold dilantin till levels are below 20, then resume at 100 mg TID Status: Acute (3) Seizure Assessment and Plan: Likely due to dilantin toxicity. Status: Acute
--- NOTE | 2017-11-12 14:08 | CP.PCM.PN ---
Subjective - Date & Time of Evaluation Date of Evaluation: 11/12/17 Time of Evaluation: 13:20 - Subjective Subjective: F/U Seizure dizziness, needs nurses help to get OOB to bathroom Objective - Vital Signs/Intake and Output Vital Signs (last 24 hours): Temp Pulse Resp BP Pulse Ox 98.1 F 81 18 113/68 98 11/12/17 11:52 11/12/17 11:52 11/12/17 11:52 11/12/17 11:52 11/12/17 11:52 - Medications Medications: Current Medications Lorazepam (Ativan) 2 mg IVP PRN PRN PRN Reason: Seizure activity - Labs Labs: 11/11/17 08:34 11/11/17 08:34 - Constitutional Appears: No Acute Distress - Head Exam Head Exam: NORMAL INSPECTION - Eye Exam Eye Exam: PERRL - ENT Exam ENT Exam: Normal Exam - Neck Exam Neck Exam: Normal Inspection - Respiratory Exam Respiratory Exam: Clear to Ausculation Bilateral - Cardiovascular Exam Cardiovascular Exam: REGULAR RHYTHM - GI/Abdominal Exam GI & Abdominal Exam: Soft, Normal Bowel Sounds - Extremities Exam Extremities Exam: Normal Inspection - Back Exam Back Exam: NORMAL INSPECTION - Neurological Exam Neurological Exam: Alert, Oriented x3. absent: Motor Sensory Deficit Additional comments: Gait not tested - Psychiatric Exam Psychiatric exam: Normal Mood - Skin Skin Exam: Warm Assessment and Plan (1) Seizure disorder Status: Acute (2) Dilantin toxicity Status: Acute - Assessment and Plan (Free Text) Plan: Dilantin level 36.7, f/u Dilantin level am, Neurology consult appreciated
--- NOTE | 2017-11-13 09:35 | CP.PCM.PN ---
Subjective - Date & Time of Evaluation Date of Evaluation: 11/13/17 Time of Evaluation: 09:33 - Subjective Subjective: Ms. Moya was seen and examined at the bedside. She is alert, oriented, able to feed herself with no assistance. She further claims of ambulating to and from the bed and bathroom in steady gait. She is able to follow simple commands. Latest dilantin level 34.6. There was no untoward events overnight. Objective - Vital Signs/Intake and Output Vital Signs (last 24 hours): Temp Pulse Resp BP Pulse Ox 98.4 F 85 20 127/74 97 11/13/17 08:00 11/13/17 08:00 11/13/17 08:00 11/13/17 08:00 11/13/17 08:00 - Medications Medications: Current Medications Lorazepam (Ativan) 2 mg IVP PRN PRN PRN Reason: Seizure activity - Labs Labs: 11/11/17 08:34 11/11/17 08:34 - Constitutional Appears: No Acute Distress - Head Exam Head Exam: NORMAL INSPECTION - Eye Exam Pupil Exam: PERRL - Neurological Exam Neurological Exam: Alert, Awake Neuro motor strength exam: Left Upper Extremity: 5, Right Upper Extremity: 5, Left Lower Extremity: 4, Right Lower Extremity: 4 Additional comments: alert, awake, follow simple commands, sensation is intact. Assessment and Plan - Assessment and Plan (Free Text) Assessment: dilantin toxicity Plan: Case discussed with Dr. Decker, continue all current medical regimen. Recommend to continue monitor Dilantin level until below 20 then to resume dilantin, hydration, treat any electrolyte abnormalities.
--- NOTE | 2017-11-13 13:39 | CP.PCM.PN ---
Subjective - Date & Time of Evaluation Date of Evaluation: 11/13/17 Time of Evaluation: 11:45 - Subjective Subjective: F/U Seizure. Found by nurse wandering in ICU earlier today, no seizure activity. Objective - Vital Signs/Intake and Output Vital Signs (last 24 hours): Temp Pulse Resp BP Pulse Ox 98.9 F 77 18 126/77 96 11/13/17 12:46 11/13/17 12:46 11/13/17 12:46 11/13/17 12:46 11/13/17 12:46 - Medications Medications: Current Medications Lorazepam (Ativan) 2 mg IVP PRN PRN PRN Reason: Seizure activity - Labs Labs: 11/11/17 08:34 11/11/17 08:34 - Constitutional Appears: No Acute Distress - Head Exam Head Exam: NORMAL INSPECTION - Eye Exam Eye Exam: PERRL - ENT Exam ENT Exam: Normal Exam - Neck Exam Neck Exam: Normal Inspection - Respiratory Exam Respiratory Exam: Clear to Ausculation Bilateral - Cardiovascular Exam Cardiovascular Exam: REGULAR RHYTHM - GI/Abdominal Exam GI & Abdominal Exam: Soft, Normal Bowel Sounds - Extremities Exam Extremities Exam: Normal Inspection - Back Exam Back Exam: NORMAL INSPECTION - Neurological Exam Neurological Exam: Alert, Oriented x3. absent: Motor Sensory Deficit - Psychiatric Exam Psychiatric exam: Normal Mood - Skin Skin Exam: Normal Color, Warm Assessment and Plan (1) Seizure disorder Status: Acute (2) Dilantin toxicity Status: Acute - Assessment and Plan (Free Text) Plan: Dilantin lever remain high in 34.6. Continue Ativan, monitor Dilantin Toxicology. Neurology f/u appreciated.
--- NOTE | 2017-11-14 09:48 | CP.PCM.PN ---
Subjective - Date & Time of Evaluation Date of Evaluation: 11/14/17 Time of Evaluation: 09:48 - Subjective Subjective: Ms. Moya was seen and examined at the bedside. She is alert, oriented, able to feed herself with no assistance. She further claims of ambulating to and from the bed and bathroom in steady gait. She is able to follow simple commands. She is able to participate in a pleasant conversation and asked pertinent questions.Latest dilantin level 31.6. There was no untoward events overnight. Objective - Vital Signs/Intake and Output Vital Signs (last 24 hours): Temp Pulse Resp BP Pulse Ox 98 F 88 18 121/72 98 11/14/17 08:09 11/14/17 08:09 11/14/17 08:09 11/14/17 08:09 11/14/17 08:09 - Labs Labs: 11/11/17 08:34 11/11/17 08:34 - Constitutional Appears: No Acute Distress - Head Exam Head Exam: NORMAL INSPECTION - Eye Exam Pupil Exam: PERRL - Neurological Exam Neurological Exam: Alert, Awake, Oriented x3 Neuro motor strength exam: Left Upper Extremity: 5, Right Upper Extremity: 5, Left Lower Extremity: 5, Right Lower Extremity: 5 Additional comments: neurological unchanged from previous examination. Assessment and Plan (1) Dilantin toxicity Assessment & Plan: Case discussed with Dr. Decker, continue all current medical regimen. Recommend to continue monitor Dilantin level until below 20 then to resume dilantin, hydration, treat any electrolyte abnormalities. Status: Acute
--- NOTE | 2017-11-14 13:37 | CP.PCM.PN ---
Subjective - Date & Time of Evaluation Date of Evaluation: 11/14/17 Time of Evaluation: 12:40 - Subjective Subjective: F/U Seizure. No ovrnight event, as per nurse, ambulate to the bathroom with steady gait Objective - Vital Signs/Intake and Output Vital Signs (last 24 hours): Temp Pulse Resp BP Pulse Ox 98.6 F 93 H 18 115/73 98 11/14/17 12:15 11/14/17 12:15 11/14/17 12:15 11/14/17 12:15 11/14/17 12:15 - Labs Labs: 11/11/17 08:34 11/11/17 08:34 - Constitutional Appears: No Acute Distress - Head Exam Head Exam: NORMAL INSPECTION - Eye Exam Eye Exam: PERRL - ENT Exam ENT Exam: Normal Oropharynx - Neck Exam Neck Exam: Normal Inspection - Respiratory Exam Respiratory Exam: Clear to Ausculation Bilateral - Cardiovascular Exam Cardiovascular Exam: REGULAR RHYTHM - GI/Abdominal Exam GI & Abdominal Exam: Soft, Normal Bowel Sounds - Extremities Exam Extremities Exam: Normal Inspection - Back Exam Back Exam: NORMAL INSPECTION - Neurological Exam Neurological Exam: Alert, Oriented x3. absent: Motor Sensory Deficit - Psychiatric Exam Psychiatric exam: Normal Mood - Skin Skin Exam: Normal Color, Warm Assessment and Plan (1) Seizure disorder Status: Acute (2) Dilantin toxicity Status: Acute - Assessment and Plan (Free Text) Plan: Dilantin level decreasing to 31.6 today, continue monitoring, continue Ativan.
[2017-11-15] MEDS: Sodium Chloride 0.9% 1,000 ML IV SCH ×2 (08:46→19:30)
--- NOTE | 2017-11-15 10:20 | CP.PCM.PN ---
Subjective - Date & Time of Evaluation Date of Evaluation: 11/15/17 Time of Evaluation: 10:20 - Subjective Subjective: Ms. Moya was seen and examined at the bedside. She is alert, oriented, able to feed herself with no assistance. She further claims of ambulating to and from the bed and bathroom in steady gait. She is able to follow simple commands. She is able to participate in a pleasant conversation and asked pertinent questions.Latest dilantin level 31.6. There was no untoward events overnight. Objective - Vital Signs/Intake and Output Vital Signs (last 24 hours): Temp Pulse Resp BP Pulse Ox 98.6 F 103 H 16 129/81 98 11/15/17 08:14 11/15/17 08:14 11/15/17 08:14 11/15/17 08:14 11/15/17 08:14 - Medications Medications: Current Medications Sodium Chloride (Sodium Chloride 0.9%) 1,000 mls @ 100 mls/hr IV .Q10H [facility] Last Admin: 11/15/17 08:46 Dose: 100 mls/hr - Labs Labs: 11/11/17 08:34 11/11/17 08:34 - Constitutional Appears: No Acute Distress - Head Exam Head Exam: NORMAL INSPECTION - Eye Exam Pupil Exam: PERRL - Neurological Exam Neurological Exam: Alert, Awake, Oriented x3 Neuro motor strength exam: Left Upper Extremity: 4, Right Upper Extremity: 4, Left Lower Extremity: 4, Right Lower Extremity: 4 Additional comments: neurological unchanged from previous examination. Assessment and Plan (1) Dilantin toxicity Assessment & Plan: Continue all current medical regimen. Recommend to continue monitor Dilantin level until below 20 then to resume dilantin, hydration, treat any electrolyte abnormalities.Recommend hydration for elevated dilantin level since there is no antedote for dilantin toxicity. Status: Acute
--- NOTE | 2017-11-15 15:57 | CP.PCM.PN ---
Subjective - Date & Time of Evaluation Date of Evaluation: 11/15/17 Time of Evaluation: 11:35 - Subjective Subjective: F/U Seizure. Objective - Vital Signs/Intake and Output Vital Signs (last 24 hours): Temp Pulse Resp BP Pulse Ox 98.8 F 97 H 20 120/78 100 11/15/17 12:00 11/15/17 12:00 11/15/17 12:00 11/15/17 12:00 11/15/17 12:00 - Medications Medications: Current Medications Sodium Chloride (Sodium Chloride 0.9%) 1,000 mls @ 100 mls/hr IV .Q10H [facility] Last Admin: 11/15/17 08:46 Dose: 100 mls/hr - Labs Labs: 11/11/17 08:34 11/11/17 08:34 - Constitutional Appears: No Acute Distress - Head Exam Head Exam: NORMAL INSPECTION - Eye Exam Eye Exam: PERRL - ENT Exam ENT Exam: Normal Exam - Neck Exam Neck Exam: Normal Inspection - Respiratory Exam Respiratory Exam: Clear to Ausculation Bilateral - Cardiovascular Exam Cardiovascular Exam: REGULAR RHYTHM - GI/Abdominal Exam GI & Abdominal Exam: Soft, Normal Bowel Sounds - Extremities Exam Extremities Exam: Normal Inspection - Back Exam Back Exam: NORMAL INSPECTION - Neurological Exam Neurological Exam: Alert, Oriented x3. absent: Motor Sensory Deficit - Psychiatric Exam Psychiatric exam: Normal Mood - Skin Skin Exam: Normal Color, Warm Assessment and Plan (1) Seizure disorder Status: Acute (2) Dilantin toxicity Status: Acute
[2017-11-16] MEDS: Sodium Chloride 0.9% 1,000 ML IV SCH ×2 (04:00→16:20)
--- NOTE | 2017-11-16 08:25 | CP.PCM.PN ---
Subjective - Date & Time of Evaluation Date of Evaluation: 11/16/17 Time of Evaluation: 08:24 - Subjective Subjective: Ms. Moya was seen and examined at the bedside. She is alert, oriented, able to feed herself with no assistance. She further claims of ambulating to and from the bed and bathroom in steady gait. She is able to follow simple commands. She is able to participate in a pleasant conversation and asked pertinent questions.She is tolerating IVF. There was no untoward events overnight. Objective - Vital Signs/Intake and Output Vital Signs (last 24 hours): Temp Pulse Resp BP Pulse Ox 98.4 F 94 H 18 144/78 98 11/16/17 08:16 11/16/17 08:16 11/16/17 08:16 11/16/17 08:16 11/16/17 08:16 - Medications Medications: Current Medications Sodium Chloride (Sodium Chloride 0.9%) 1,000 mls @ 100 mls/hr IV .Q10H [facility] Last Admin: 11/16/17 04:00 Dose: 100 mls/hr - Labs Labs: 11/11/17 08:34 11/11/17 08:34 - Constitutional Appears: No Acute Distress - Head Exam Head Exam: NORMAL INSPECTION - Eye Exam Pupil Exam: PERRL - Neurological Exam Neurological Exam: Alert, Awake Neuro motor strength exam: Left Upper Extremity: 5, Right Upper Extremity: 5, Left Lower Extremity: 5, Right Lower Extremity: 5 Additional comments: neurological unchanged from previous examination. Assessment and Plan (1) Dilantin toxicity Assessment & Plan: Continue all current medical regimen. Pending dilantin level. Recommend to continue monitor Dilantin level until below 20 then to resume dilantin, hydration, treat any electrolyte abnormalities. Status: Acute
--- NOTE | 2017-11-16 15:43 | CP.PCM.PN ---
Subjective - Date & Time of Evaluation Date of Evaluation: 11/16/17 Time of Evaluation: 10:50 - Subjective Subjective: F/U Seizure Objective - Vital Signs/Intake and Output Vital Signs (last 24 hours): Temp Pulse Resp BP Pulse Ox 98.8 F 97 H 18 133/78 99 11/16/17 12:26 11/16/17 12:26 11/16/17 12:26 11/16/17 12:26 11/16/17 12:26 - Medications Medications: Current Medications Sodium Chloride (Sodium Chloride 0.9%) 1,000 mls @ 100 mls/hr IV .Q10H [facility] Last Admin: 11/16/17 04:00 Dose: 100 mls/hr Levetiracetam (Keppra) 500 mg PO BID [facility] - Labs Labs: 11/11/17 08:34 11/11/17 08:34 - Constitutional Appears: No Acute Distress - Head Exam Head Exam: NORMAL INSPECTION - Eye Exam Eye Exam: PERRL - ENT Exam ENT Exam: Normal Exam - Neck Exam Neck Exam: Normal Inspection - Respiratory Exam Respiratory Exam: Clear to Ausculation Bilateral - Cardiovascular Exam Cardiovascular Exam: REGULAR RHYTHM - GI/Abdominal Exam GI & Abdominal Exam: Soft, Normal Bowel Sounds - Extremities Exam Extremities Exam: Normal Inspection - Back Exam Back Exam: NORMAL INSPECTION - Neurological Exam Neurological Exam: Alert, Oriented x3. absent: Motor Sensory Deficit - Psychiatric Exam Psychiatric exam: Normal Mood - Skin Skin Exam: Normal Color, Warm Assessment and Plan (1) Seizure disorder Status: Acute (2) Dilantin toxicity Status: Acute
[2017-11-17 00:26] VITALS: RESP 18
[2017-11-17] MEDS: Sodium Chloride 0.9% 1,000 ML IV SCH (01:14)
[2017-11-17 08:17] VITALS: BP 128/81; PULSE 88; TEMP 98; O2SAT 99
--- NOTE | 2017-11-17 08:53 | CP.PCM.PN ---
Subjective - Date & Time of Evaluation Date of Evaluation: 11/17/17 Time of Evaluation: 08:52 - Subjective Subjective: Ms. Moya was seen and examined at the bedside. She remains alert, oriented. She denies any headache, dizziness, lightheadedness, able to follow simple commands. She is able to perform her ADL's. There is no seizure activity noted overnight. Her dilantin level is 13.2.There was no untoward events overnight. Objective - Vital Signs/Intake and Output Vital Signs (last 24 hours): Temp Pulse Resp BP Pulse Ox 98 F 88 18 128/81 99 11/17/17 08:16 11/17/17 08:16 11/17/17 08:16 11/17/17 08:16 11/17/17 08:16 - Medications Medications: Current Medications Sodium Chloride (Sodium Chloride 0.9%) 1,000 mls @ 100 mls/hr IV .Q10H [facility] Last Admin: 11/17/17 01:14 Dose: 100 mls/hr Levetiracetam (Keppra) 500 mg PO BID [facility] Last Admin: 11/16/17 16:20 Dose: 500 mg - Labs Labs: 11/11/17 08:34 11/11/17 08:34 - Constitutional Appears: No Acute Distress - Head Exam Head Exam: NORMAL INSPECTION - Eye Exam Pupil Exam: PERRL - Neurological Exam Neurological Exam: Alert, Awake, Oriented x3 Neuro motor strength exam: Left Upper Extremity: 4, Right Upper Extremity: 4, Left Lower Extremity: 4, Right Lower Extremity: 4 Additional comments: no neurological unchanged from previous examination. Assessment and Plan (1) Dilantin toxicity Assessment & Plan: Case discussed with Dr. Hastings, continue current medical regimen including current AED. May discharge to home with keppra only, no dilantin, follow up with her own neurologist, hydration. Status: Acute
== END 2017-11-17 11:48 | disposition home or self-care (01) | DRG 93 ==
LOC: H.ER 15:05 → UNDOADMOB 18:56 → H.ERHOLD 18:56 → INTOOBSV 19:16 → OBSVTOIN 19:16 → H.TEL 21:01 → H.ERHOLD 21:01 → OBSVTOIN 11-12 19:16 → H.TEL 11-12 19:16 → H.ERHOLD 11-12 19:16
PROVIDERS: ADMIT Internal Medicine Pulmonary Disease; ATTEND Internal Medicine Pulmonary Disease
PROC: 3E0234Z Introduction of Serum, Toxoid and Vaccine into Muscle, Percutaneous Approach (ICD-10-PCS; principal; 2017-11-11)
DX: R26.0 Ataxic gait (principal); T42.0X5A Adverse effect of hydantoin derivatives, initial encounter; Z23 Encounter for immunization; Z91.013 Allergy to seafood; F20.9 Schizophrenia, unspecified; G40.909 Epilepsy, unspecified, not intractable, without status epilepticus

== ENCOUNTER 2018-01-02 22:24 | Emergency (ER) | payer MEDICARE, OTHER ==
[2018-01-02 22:24] VITALS: BMI 23.8
[2018-01-02 22:48] VITALS: BP 135/76; PULSE 77; RESP 18; TEMP 98.6; O2SAT 99
--- NOTE | 2018-01-02 22:52 | ED PDOC ---
HPI: Back Time Seen by Provider: 01/02/18 22:49 Chief Complaint (Nursing): Back Pain Chief Complaint (Provider): back pain History Per: Patient Additional Complaint(s): 52 y/o female presents with upper and lower back pain 1 week. She denies injury or trauma. Patient took Tylenol today which helped minimally. She denies radiation of pain, no chest pain, shortness of breath or dyspnea on exertion. Past Medical History Reviewed: Historical Data, Nursing Documentation, Vital Signs Vital Signs: Last Vital Signs Temp 98.6 F 01/02/18 22:40 Pulse 77 01/02/18 22:40 Resp 18 01/02/18 22:40 BP 135/76 01/02/18 22:40 Pulse Ox 99 01/02/18 22:40 - Medical History PMH: Schizophrenia, Seizures (LAST EPISODE 06/18/16-TO ER-IV GIVEN AND D/C HOME) - Surgical History Surgical History: - Family History Family History: States: No Known Family Hx - Living Arrangements Living Arrangements: With Family - Social History Current smoker - smoking cessation education provided: No Alcohol: None Drugs: Denies - Home Medications Home Medications: Ambulatory Orders Medication Instructions Recorded Haloperidol Decanoate [Haldol 100 mg IM QWK 11/10/17 Decanoate--long acting] levETIRAcetam [Keppra] 500 mg PO BID #60 tab 11/17/17 Ibuprofen [Motrin Tab] 800 mg PO Q8 PRN #20 tab 01/02/18 - Allergies Allergies/Adverse Reactions: Allergies Allergy/AdvReac Type Severity Reaction Status Date / Time shrimp Allergy SWELLING Verified 01/02/18 22:43 seafood Allergy SWELLING Uncoded 01/02/18 22:43 Review of Systems ROS Statement: Except As Marked, All Systems Reviewed And Found Negative Constitutional: Negative for: Fever Cardiovascular: Negative for: Chest Pain Respiratory: Negative for: Cough Gastrointestinal: Negative for: Nausea, Vomiting Musculoskeletal: Positive for: Neck Pain, Back Pain Neurological: Negative for: Weakness, Numbness, Incoordination, Headache, Dizziness Physical Exam - Reviewed Nursing Documentation Reviewed: Yes Vital Signs Reviewed: Yes - Physical Exam Appears: Positive for: Well, Non-toxic, No Acute Distress Skin: Positive for: Normal Color. Negative for: Rash Eye Exam: Positive for: Normal appearance Neck: Positive for: Painless ROM Cardiovascular/Chest: Positive for: Regular Rate, Rhythm Respiratory: Positive for: Normal Breath Sounds. Negative for: Wheezing, Respiratory Distress Back: Positive for: Vertebral Tenderness (Tenderness to cervical spine and lumbar spine, no palpable bony deformity, no CVA tenderness bilaterally, patient is able to heel and toe walk) Extremity: Positive for: Normal ROM Neurologic/Psych: Positive for: Alert, Oriented, Gait (steady) - ECG O2 Sat by Pulse Oximetry: 99 Pulse Ox Interpretation: Normal Medical Decision Making Medical Decision Makin52 y/o female with back pain Plan: PO motrin Patient reports improvement pain after Motrin was given. Prescription for Motrin provided. Patient was asked to follow up with primary doctor in 2-3 days. Disposition - Clinical Impression Clinical Impression: Back strain - Patient ED Disposition Is Patient to be Admitted: No Counseled Patient/Family Regarding: Diagnosis, Need For Followup, Rx Given - Disposition Referrals: [facility] [Outside] Disposition: Routine/Home Disposition Time: 23:02 Condition: STABLE Additional Instructions: Take rx meds as directed as needed for pain. Follow up with primary care doctor in 2-3 days. Prescriptions: Ibuprofen [Motrin Tab] 800 mg PO Q8 PRN #20 tab PRN Reason: Pain, Moderate (4-7) Instructions: Back Exercises, Muscle Strain, Low Back Pain in Adults
== END 2018-01-02 23:53 | disposition home or self-care (01) ==
LOC: H.ER 22:24
DX: M54.9 Dorsalgia, unspecified (principal)

== ENCOUNTER 2018-06-01 09:06 | Emergency (ER) | payer OTHER ==
[2018-06-01 09:06] VITALS: BMI 23.8
--- NOTE | 2018-06-01 10:27 | ED PDOC ---
HPI: General Adult Time Seen by Provider: 06/01/18 09:32 Chief Complaint (Nursing): Upper Extremity Problem/Injury Chief Complaint (Provider): Tremors History Per: Patient History/Exam Limitations: no limitations Onset/Duration Of Symptoms: Sudden Onset Current Symptoms Are (Timing): Still Present Additional Complaint(s): 53yo female with history of schizophrenia, seizures (compliant with dilantin), comes to ER reporting she has had shaking in her hands for the past 3 months. She was evaluated by her neurologist Dr. Garnica and informed this might be due to her medications. Patient did not follow up again after the initial visit. She additionally reports she did not take her Dilantin today. Otherwise, no weakness, numbness, headache, dizziness, chest pain or shortness of breath. No alcohol or drug abuse. No additional complaints. PMD: Dr. Long Past Medical History Reviewed: Historical Data, Nursing Documentation, Vital Signs Vital Signs: Last Vital Signs Temp 98.3 F 06/01/18 09:10 Pulse 89 06/01/18 09:10 Resp 17 06/01/18 09:10 BP 115/68 06/01/18 09:10 Pulse Ox 97 06/01/18 09:10 - Medical History PMH: Schizophrenia, Seizures (LAST EPISODE 06/18/16-TO ER-IV GIVEN AND D/C HOME) Denies: HIV, Chronic Kidney Disease - Surgical History Surgical History: - Family History Family History: States: No Known Family Hx - Social History Current smoker - smoking cessation education provided: No Alcohol: None Drugs: Denies - Home Medications Home Medications: Ambulatory Orders Medication Instructions Recorded Haloperidol Decanoate [Haldol 100 mg IM QWK 11/10/17 Decanoate--long acting] levETIRAcetam [Keppra] 500 mg PO BID #60 tab 11/17/17 Topiramate [Topamax] 25 mg PO TID 06/01/18 - Allergies Allergies/Adverse Reactions: Allergies Allergy/AdvReac Type Severity Reaction Status Date / Time shrimp Allergy SWELLING Verified 01/02/18 22:43 seafood Allergy SWELLING Uncoded 01/02/18 22:43 Review of Systems ROS Statement: Except As Marked, All Systems Reviewed And Found Negative Constitutional: Negative for: Fever, Chills Cardiovascular: Negative for: Chest Pain Respiratory: Negative for: Shortness of Breath Gastrointestinal: Negative for: Vomiting, Abdominal Pain Neurological: Positive for: Other ("shaking" in hands). Negative for: Weakness, Numbness, Headache, Dizziness Physical Exam - Reviewed Nursing Documentation Reviewed: Yes Vital Signs Reviewed: Yes - Physical Exam Appears: Positive for: Non-toxic, No Acute Distress Head Exam: Positive for: ATRAUMATIC, NORMAL INSPECTION, NORMOCEPHALIC Skin: Positive for: Normal Color, Warm Eye Exam: Positive for: Normal appearance, EOMI, PERRL Neck: Positive for: Normal, Painless ROM, Supple Cardiovascular/Chest: Positive for: Regular Rate, Rhythm. Negative for: Tachycardia Respiratory: Positive for: Normal Breath Sounds. Negative for: Rales, Rhonchi, Respiratory Distress Pulses-Radial (L): 2+ Pulses-Radial (R): 2+ Gastrointestinal/Abdominal: Positive for: Normal Exam Back: Positive for: Normal Inspection Extremity: Positive for: Normal ROM, Other (mild tremors noted to hands). Negative for: Deformity, Swelling Neurologic/Psych: Positive for: Alert, Oriented, Mood/Affect (flat affect), Gait (steady). Negative for: Motor/Sensory Deficits - Laboratory Results Result Diagrams: 06/01/18 10:20 06/01/18 10:20 - ECG O2 Sat by Pulse Oximetry: 97 (RA) Pulse Ox Interpretation: Normal Medical Decision Making Medical Decision Making: Impression: Tremors, flat affect Differential: Electrolyte abnormalities, UTI, dilantin toxicity, less likely alcohol withdrawal Plan: -- Labs -- EKG -- UDS -- Dilantin level -- Magnesium level Vital signs are stable. Labs reviewed. In my opinion there are no current acute medical conditions that contraindicate the placement of this patient in a psychiatric unit. 1300 Per crisis patient can be discharged as per Dr King. Scribe Attestation: Documented by Yovana Henriquez acting as a scribe for Mary Benoit MD Provider Attestation: All medical record entries made by the Scribe were at my direction and pers onally dictated by me. I have reviewed the chart and agree that the record accurately reflects my personal performance of the history, physical exam, medical decision making, and the department course for this patient. I have also personally directed, reviewed, and agree with the discharge instructions and disposition. Disposition - Clinical Impression Clinical Impression: Schizophrenia, Limb tremor - Patient ED Disposition Is Patient to be Admitted: No Doctor Will See Patient In The: Office Counseled Patient/Family Regarding: Studies Performed, Diagnosis, Need For Followup - Disposition Referrals: Dilshad Garnica MD [Medical Doctor] - Disposition: Routine/Home Disposition Time: 13:10 Condition: GOOD Additional Instructions: SARAH CLARKE, thank you for letting us take care of you today. Your provider was Mary Benoit MD and you were treated for SHAKING, POS SEIZURE. The emergency medical care you received today was directed at your acute symptoms. If you were prescribed any medication, please fill it and take as directed. It may take several days for your symptoms to resolve. Return to the Emergency Department if your symptoms worsen, do not improve, or if you have any other problems. Please contact your doctor or call one of the physicians/clinics you have been referred to that are listed on the Patient Visit Information form that is included in your discharge packet. Bring any paperwork you were given at discharge with you along with any medications you are taking to your follow up visit. Our treatment cannot replace ongoing medical care by a primary care pro vider outside of the emergency department. Thank you for allowing the [facility] team to be part of your care today. If you had an X-Ray or CT scan: A Radiologist will review the ED reading if any change in treatment is needed we will contact you. If you had a blood, urine, or wound culture: It will take several days for the results, if any change in treatment is needed we will contact you. If you had an STI test: It will take 48 hours for the results. Please call after 1 week if you have not heard back. Instructions: Tremor, Schizophrenia
[2018-06-01 11:00] LABS: BASO % 0.7 % (0.0-2.0); EOS % 0.7 % (0.0-4.0); HEMOGLOBIN 11.5 g/dL (12.0-16.0); LYMPH # 1.7 K/uL (1.0-4.3); LYMPH % 29.8 % (20.0-40.0); MEAN CELL VOLUME 86.1 fl (81.0-99.0); MEAN CORPUSCULAR HEMOGLOBIN 28.6 pg (27.0-31.0); MEAN CORPUSCULAR HGB CONC 33.2 g/dL (33.0-37.0); MEAN PLATELET VOLUME 8.2 fl (7.2-11.7); MONO # 0.4 K/uL (0.0-0.8); MONO % 7.4 % (0.0-10.0); NEUT # 3.5 K/uL (1.8-7.0); NEUT % 61.4 % (50.0-75.0); RBC 4.03 Mil/uL (3.80-5.20); RED CELL DISTRIBUTION WIDTH 14.1 % (11.5-14.5); WHITE BLOOD COUNT 5.8 K/uL (4.8-10.8)
[2018-06-01 11:08] LABS: ALB/GLOB RATIO 1.2 (1.0-2.1); ALBUMIN 4.6 g/dL (3.5-5.0); ALT/SGPT 25 U/L (9-52); AST/SGOT 24 U/L (14-36); BLOOD UREA NITROGEN 10 mg/dl (7-17); CALCIUM 10.1 mg/dL (8.4-10.2); GFR NON-AFRICAN AMERICAN 58
[2018-06-01 11:19] LABS: BARBITURATES, UR NEGATIVE (NEGATIVE); BENZODIAZEPINES, UR NEGATIVE (NEGATIVE); OPIATES, UR NEGATIVE (NEGATIVE); PHENCYCLIDINE, UR NEGATIVE (NEGATIVE)
[2018-06-01] MEDS ORDERED: Potassium Chloride 20 mEq ER Tab PO ONE ×2 (11:23→11:53)
[2018-06-01 14:14] VITALS: BP 128/78; PULSE 76; RESP 19; TEMP 97.6; O2SAT 98
--- NOTE | 2018-06-01 23:48 | CARD ---
APPROVED REPORT Date of service: 06/01/2018 EKG Measurement Heart [id number] <Conclusion> Normal sinus rhythm Nonspecific T wave abnormality Abnormal ECG
== END 2018-06-01 14:15 | disposition home or self-care (01) ==
LOC: H.ER 09:06
DX: R25.1 Tremor, unspecified (principal); F20.9 Schizophrenia, unspecified
CPT/HCPCS: 80053; 80185; 83735; 85025; 93005; 99282; G0480